=== PATIENT | female | born 1960 | race Caucasian/White ===

== ENCOUNTER → 2018-02-16 11:40 | Outpatient (CLI) | payer OTHER, SELFPAY ==
[2018-02-16 11:56] LABS: Bacteria Urine None Seen; RBC Urine None Seen (0-5/HPF); WBC Urine None Seen (0-5/HPF)
[2018-02-16 12:15] LABS: Appearance Urine UA CLEAR; Bilirubin Urine UA NEGATIVE (NEGATIVE); Color Urine UA YELLOW; Glucose Urine UA NEGATIVE (Normal); Ketones Urine UA NEGATIVE (NEGATIVE); Leukocyte Esterase Urine UA NEGATIVE (NEGATIVE); Nitrite Urine UA Negative (Negative); Occult Blood Urine UA NEGATIVE (Negative); Protein Urine UA NEGATIVE (Negative); Urobilinogen Urine UA 0.2 E.U./dL (0.2)
[2018-02-16 12:27] LABS: Hemoglobin A1C% w Est Avg Glu 5.1 % (4.0-6.0)
[2018-02-16 12:39] LABS: Culture Indicated Urine Cult Not Indicated; Squamous Epithelial Cell Urine 0-1 /HPF
[2018-02-16 12:40] LABS: Add Manual Diff / Slide Review NO; Basophils Percent Auto 0.8 % (0-2); Eosinophils Percent Auto 2.2 % (2-4); Hematocrit 40.5 % (36-46); Hemoglobin 13.8 g/dL (12.0-16.0); Mean Corpuscular HGB Conc 34.2 % (30-36); Mean Corpuscular Hemoglobin 30.7 PG (26-34); Mean Corpuscular Volume 89.8 fL (80-100); Monocytes Percent Auto 8.1 % (3-14); Neutrophils Absolute Auto 3500 /uL (3000-5900); Neutrophils Percent Auto 61.9 % (50-75); Platelet Count 274 X10^3/uL (150-400); Red Blood Cell Count 4.51 X10^6/uL (4.0-5.2); Red Cell Distribution Width 12.9 % (11.6-14.8); White Blood Cell Count 5.7 X10^3/uL (4.5-11.0)
[2018-02-16 12:44] LABS: BUN Creatinine Ratio 17.8 (6-22); Blood Urea Nitrogen 16 mg/dL (7-17); Calcium 9.7 mg/dL (8.4-10.2); Carbon Dioxide 30 mmol/L (22-32); Chloride 106 mmol/L (98-107); Estimated Glomerular Filt Rate > 60.0 mL/min (>60); Glucose 78 mg/dL (70-100); HEMOLYSIS < 15 (0-50); Potassium 5.2 mmol/L (3.4-5.1); Sodium 147 mmol/L (137-145)
== END ==
PROVIDERS: Visit Provider Orthopaedic Surgery
DX: Z01.818 Encounter for other preprocedural examination (principal); Z01.812 Encounter for preprocedural laboratory examination; N39.9 Disorder of urinary system, unspecified; R73.09 Other abnormal glucose
CPT/HCPCS: 36415; 80048; 81001; 83036; 85025; 93005

== ENCOUNTER 2018-03-29 10:22 | Inpatient (IN) | payer OTHER, SELFPAY ==
[2018-03-13 10:10] VITALS: BMI 26.6
[2018-03-29] VITALS (13 sets, daily range): BP systolic 99–133; BP diastolic 50–85; PULSE 71–92; RESP 10–22; TEMP 35.8–37.7; O2SAT 88–98; BMI 26.0
--- NOTE | 2018-03-29 | DI.RAD.S_ITS ---
PROCEDURE: XR HIP W PEL IF DONE LT 2V INDICATIONS: LEFT TOTAL HIP TECHNIQUE: 2 view(s) of the hip acquired. COMPARISON: None. FINDINGS: Bones: Patient is st undergoing left hip arthroplasty, with hardware components in expected positions. The hip joint appears congruent, the sizing devices and alignment appear normal. The visualized bony structures appear intact. Soft tissues: Overlying postoperative changes are noted. No suspicious soft tissue densities. IMPRESSION: Normal intraoperative appearance of left total hip arthroplasty procedure with components in normal position in preparation for placement of final components of arthroplasty. Dictated by: Michael Howard M.D. on 03/29/2018 at 16:43 Approved by: Michael Howard M.D. on 03/29/2018 at 16:45
--- NOTE | 2018-03-29 | DI.RAD.S_ITS ---
PROCEDURE: XR HIP W PEL IF DONE LT 2V INDICATIONS: POST OPERATIVE LEFT TOTAL HIP TECHNIQUE: 2 view(s) of the hip acquired. COMPARISON: [facility] [place], [place], XR HIP W PEL IF DONE LT 2V, 03/29/2018, 13:56. FINDINGS: Bones: Patient is status post left hip arthroplasty, with hardware components in expected positions. The hip joint appears congruent. The visualized bony structures appear intact. Soft tissues: Overlying postoperative changes are noted. No suspicious soft tissue densities. IMPRESSION: Completion of left total hip arthroplasty. Note is made of relatively severe right hip osteoarthritis with near [id number] articulation. Dictated by: Michael Howard M.D. on 03/29/2018 at 16:45 Approved by: Michael Howard M.D. on 03/29/2018 at 16:46
[2018-03-29] MEDS: LACTATED RINGERS 1,000 ML 42 ML IV ×4 (11:00→15:36)
[2018-03-29] MEDS: VANCOMYCIN 1,000 MG/200 ML FROZ.PIGGY 200 MG IV (11:15)
[2018-03-29] MEDS: ACETAMINOPHEN 325 MG TABLET 975 MG PO ×2 (11:22→21:22)
[2018-03-29] MEDS: PREGABALIN 75 MG CAPSULE PO (11:23)
[2018-03-29] MEDS: CELECOXIB 200 MG CAPSULE PO (11:23)
[2018-03-29] MEDS: CEFAZOLIN 2 GM/100 ML FROZ.PIGGY IV ×2 (12:30→19:43)
--- NOTE | 2018-03-29 12:31 | PM.OP.1 ---
Operative Date/Time/Diagnoses Date of procedure: 03/29/18 Time of procedure: 12:32 Pre-op diagnosis: Left hip osteoarthritis, left hip abductor tear with calcifications Post-op diagnosis: same Procedure & Clinicians Procedure: left total hip arthroplasty, repair left hip abductors Same procedure as scheduled: Yes Indications: The patient has had progressively worsening left hip pain with radiographic changes consistent with arthritis. Non-operative management has failed and the patient has requested total hip replacement. The risks, benefits and alternatives to surgery were discussed with the patient prior to proceeding. Risks discussed included, but were not limited to, failure to relieve pain, leg length discrepancy, dislocation, stiffness, infection, nerve damage, deep venous thrombosis, pulmonary embolism, stroke, coma, heart attack, permanent paralysis and , as well as the potential need for eventual revision of the prosthetic. Surgeon: Amara Ng [employer]: Ayana Coleman Anesthesia Type: General and Spinal Operative Notes Findings: severe left hip osteoarthritis Closure Type: primary Specimen(s): none sent Implants & Drains: Ng and Nephew 52 R3, anthology 6 SO, +4 x 36 Estimated Blood Loss (mL): 350 Blood products transfused: none Procedure in detail: The patient was brought to the operating room. Patient was carefully positioned in the supine position. Time-out was performed and antibiotics were given. Anesthesia was induced. She was positioned in the on the table in order to allow hyperextension of the hip. Bilateral lower extremities were prepped and draped in a standard sterile fashion. An anterior Left hip incision was made 1 fingerbreadth lateral to the anterior superior iliac spine and extended distally towards the greater trochanter. Dissection was carried out through skin and subcutaneous tissues. The skin and subcutaneous tissues were carefully injected with Lidocaine with epi. Superficial hemostasis was achieved. The fascia over the tensor fascia breanne was defined and incised with a knife. Two Allis clamps were used to grasp the fascia. Tensor fascia breanne was retracted laterally. A gelpi retractor was placed. Dissection was carried out down along the neck. The circumflex vessels were carefully identified and cauterized with the Aqua Mantis. There was good visualization of the femoral neck. A Cobra was placed superior to the neck and the gluteus fibers were carefully stripped from that superior aspect of the capsule. A 2nd retractor was placed along the inferior aspect of the neck. The rectus insertion along the capsule was partially released. A 3rd retractor that was then gently placed over the rim of the acetabulum under the rectus. Capsule was carefully incised and released from the intertrochanteric line circumferentially superior to the mid sagittal line and inferiorly to the mid sagittal line until the lesser trochanter was palpable. A tag stitch was placed both in the superior and inferior limb of the capsular insertion. Along the acetabulum capsule was also released up to the mid sagittal 12:00 position. A portion of the labrum was resected. A saw was used to perform an osteotomy at the level of the intertrochanteric line and the junction of the superior femoral neck leaving approximately 1 finger breath of residual inferior neck above the lesser trochanter. A 2nd cut was made along the femoral neck at the base of the head and a napkin ring of neck was removed. Corkscrew was placed in the femoral head and the head was removed without difficulty. Retractors were then repositioned around the acetabulum. Residual labrum was resected and additional osteophytes were removed. A reamer that was 4 mm below the templated size was placed by hand in the acetabulum and it was reamed to centralize the acetabulum. It was then reamed up to 2 under the templated size and fluoroscopy was brought in to confirm the position of the reaming and depth of reaming. I reamed 1 under the anticipated size and touched the rim with line to line reaming. A trial cup was placed and noted that it was appropriately sized and fluoroscopy confirmed position and depth. The component was open and inserted without difficulty fluoroscopic imaging was used to confirm that the cup had been adequately seated and was well positioned. Neutral poly trial liner was placed. The cup was tested and noted to be stable. Attention was then directed to the femur. The femur was gently hyperextended additional capsular release was performed as needed in order to allow adequate visualization of the proximal femur with elevation of the femur. Patient was placed in a hyperextended slightly abducted position with maximum external rotation. Box osteotome was used to check for any residual neck as well as sclerotic bone along the trochanter. Bucklin pepper was placed in the femur. Additional broaching was performed. Canal finder was used to determine the alignment of the canal and position. Size 1 broach was placed. The canal was then appropriately broached up to the templated size as long as there was adequate stability of the broach and serial advancement of the broach without excessive impingement. Specific attention was directed at avoiding varus attempting to direct the distal aspect of the broach more anteriorly and avoiding excessive anteversion. Trial reduction showed acceptable range of motion, good stability, no posterior impingement, hoahaoism of leg length and appropriate lateral shuck. I also hyperflexed the hip and checked that there was no impingement anteriorly and there was good stability with flexion, abduction and internal rotation. Final neutral poly was placed without difficulty. Marcaine and Exparel were injected.. The stem was placed without difficulty. Repeat trial reduction and x-ray showed acceptable overall position, length, and no evidence of the femoral fracture. Final head was placed. Wound was meticulously irrigated with normal saline. The hip was reduced and additional Exparel and Marcaine were injected. The capsule was closed with interrupted nonabsorbable sutures. The fascia of the tensor was closed with interrupted and running Vicryl. No drain was placed. Any tensor fascia breanne muscle that appeared to be contused or injured which was a minimal amount was carefully resected. Capsule around the tensor was injected with Exparel and Marcaine. The skin was closed with barbed stitches for the subcutaneous tissue and skin. We also used surgical glue. The wound was dressed sterilely. Brief Betadine soak was also used and was meticulously irrigated with normal saline. Patient was transferred to recovery room in satisfactory condition. Complications: none Condition: stable Disposition: Acute Care Plan for aftercare: The patient will be maintained on a standard total hip replacement protocol with weight bearing as tolerated and anterior hip precautions. The patient will receive Aspirin and sequential compression devices for DVT prophylaxis. The patient will be discharged home when safe for the home environment.
[2018-03-29] MEDS: TRANEXAMIC ACID 1,000 MG VIAL 2000 MG INJ ×2 (13:00→15:23)
[2018-03-29] MEDS: LIDOCAINE 1% W/EPI INJ 20 ML INJ (13:04)
--- NOTE | 2018-03-29 13:08 | SUR.OPER ---
Supine, head on pillow, torso on pink pad positioner. Iliac crest at flex of foot end of table. Gel roll under operative hip. Both arms secured on arm boards <90 degrees abduction.
[2018-03-29] MEDS: BUPIVACAINE LIPOSOME 266 MG/20 ML VIAL INJ (13:17)
[2018-03-29] MEDS: BUPIVACAINE 0.25% W/ EPI VIAL 50 ML INJ (13:17)
[2018-03-29] MEDS: POVIDONE-IODINE 15 ML, SODIUM CHLORIDE 0.9% 250 ML TOP (13:18)
[2018-03-29] MEDS: fentaNYL 100 MCG/2 ML INJ 50 MCG IV (16:21)
--- NOTE | 2018-03-29 16:52 | SUR.PHASEI ---
Report called to Maria Del Rosario schultz.
--- NOTE | 2018-03-29 17:26 | SUR.PHASEI ---
Pt transferred to the floor. VS stable. Report given to Maricarmen Cantor. IV saline locked. Aquacel CDI. Pt able to wiggle winsome ankles. Reported back and lt hip pain 5/10. Spinal level L1. Belongings bag in room. Bag with medications given to spouse in the room.
[2018-03-29] MEDS: LACTATED RINGERS 1,000 ML 125 ML IV ×2 (17:50→18:22)
[2018-03-29] MEDS: IBUPROFEN 600 MG TABLET PO (17:58)
--- NOTE | 2018-03-29 18:17 | PC.NURSE ---
Pt to room 212 from PACU awake and alert. Admits to left hip pain, dull in nature /10. Anterior aquacel dry and intact. L hip. Admits to spotty sensation to BL LE's stating feels as though calves are numb. Equally warm and pink extremities. BL calf scd's in place. Ibuprofen with yogurt for pain.
[2018-03-29] MEDS: ASPIRIN EC 81 MG TABLET PO (21:23)
[2018-03-29] MEDS: DOCUSATE 100 MG CAPSULE PO (21:25)
--- NOTE | 2018-03-29 21:49 | PC.NURSE ---
Student nurse note 03/28/18 At approximately 2030 I assess patient's vital signs, during this time I also provided education on incentive spirometry as patient did not have one in room, but was told about it pre-op. After setting this up and performing three rounds of incentive spirometry patient coughed which triggered an incontinence episode. Patient stated it feels a little warm down there. With further assessment, patient stated Wow, I can't feel anything down there. Further assessment revealed efficient lower extremity sensation and strength, only numbness within perineum area. Patient was assisted onto bed jules and linens were changed. Patient bed in low locked position and call light within reach.
--- NOTE | 2018-03-29 23:12 | PC.NURSE ---
Reports no sensation in periarea. Incontinent of urine and able to void in bedpan as well. States prefers no narcotics and plans to stay with tylenol, ibuprofen and ice. Resting quietly in bed without signs of distress or discomfort. Continuous pulse oximeter in place. Room air 91-92% with sleep.
[2018-03-30] MEDS: IBUPROFEN 600 MG TABLET PO ×3 (00:07→12:43)
--- NOTE | 2018-03-30 00:28 | PC.NURSE ---
Addendum entered by Carina Alvarez R.N. 03/30/18 06:25: Requested/medicated with Ibuprofen despite stating she is having no pain; is concerned about keeping pain well controlled. Numbness still persists in anterior/lateral left thigh from hip to knee. Numbness of buttock resolved and has been able to control urinary function again. Voided on bedpan x 2 this shift for total of 1300cc UOP. BP improved at 113/70. Original Note: Patient is alert and oriented. Breath sounds CTA with RA sat of 97%; on continuous pulse oximetry as per post op epidural orders. HRR but BP low at 98/50; asymptomatic. Denies nausea. BT present and is passing flatus. Has residual numbness in left thigh, buttock and side so has been incontinent of urine as feeling sensation to urinate when already too late to call for assist; normally does have some stress incontinence. Is able to move self in bed but prefers to lie on back at this time. Dressing to left hip is CDI. States pain is 0/10 with increase to 1/10 with movement but requests/medicated with Ibuprofen to stay on top it; ice also applied for comfort. CMS of lower extremites (except upper leg/buttock) is intact. Wearing bilateral SCD's. Fall risk score is moderate and bed alarm is activated.
[2018-03-30] MEDS: LACTATED RINGERS 1,000 ML 125 ML IV ×2 (02:08→11:40)
[2018-03-30] MEDS: CEFAZOLIN 2 GM/100 ML FROZ.PIGGY IV (04:10)
[2018-03-30 06:25] VITALS: BP 113/70; PULSE 77; RESP 18; TEMP 36.9; O2SAT 98
[2018-03-30 06:53] LABS: Hematocrit 28.7 % (36-46); Hemoglobin 9.7 g/dL (12.0-16.0)
[2018-03-30 07:37] VITALS: BP 100/64; PULSE 71; RESP 14; TEMP 36.8; O2SAT 98
[2018-03-30] MEDS: ACETAMINOPHEN 325 MG TABLET 975 MG PO ×2 (09:13→14:53)
[2018-03-30] MEDS: ASCORBIC ACID 500 MG TABLET PO (09:14)
[2018-03-30] MEDS: ASPIRIN EC 81 MG TABLET PO (09:14)
[2018-03-30] MEDS: FERROUS GLUCONATE 324 MG TABLET PO (09:14)
[2018-03-30] MEDS: DOCUSATE 100 MG CAPSULE PO (09:15)
--- NOTE | 2018-03-30 09:20 | P.PN_ITS ---
Subjective Date Patient Seen: 03/30/18 Time Patient Seen: 09:17 Interval history: Hospital day 2, postop day 1 following left anterior total hip arthroplasty and abductors tear repair by Dr. Ng. Patient states she is doing well today. Has been taking ibuprofen and Tylenol only for pain. She has not been out of bed yet. No physical therapy yet. Does note some mild numbness to her left anterior thigh. She is voiding. H&H this morning 9.7/ 28.7. Exam Vital Signs (past 8 hours): - 03/30/18 06:25 03/30/18 07:37 Temperature 98.4 F 98.2 F Pulse Rate 77 71 Respiratory Rate 18 14 Blood Pressure 113/70 100/64 Pulse Oximetry 98 98 Oxygen Delivery Method Room Air Oxygen Flow Rate 0 Narrative Exam Narrative: Alert, oriented no acute distress lying in bed. Legs. Aquacel dressing to left anterior hip is dry without drainage or inflammation. No calf pain or swelling. Pulses symmetrical. Good movement of ft on dorsiflexion plantar flexion. Patient also seen by Dr. Ng. Objective Labs Result Diagrams: 03/30/18 06:33 Labs: Laboratory Results - last 24 hr 03/30/18 06:33 Hgb 9.7 L Hct 28.7 L Assessment & Plan Post-op Postoperative Procedures Operation Date: 03/29/18 12:00 Actual Procedures Side Surgeon p Total Hip Arthroplasty/Anterior Approach Left Amaramindi Ng MD Co plan patient to be discharged home later today after cleared by physical therapy. Patient will be started on ferrous gluconate and vitamin-C for treatment of her anemia. Patient is a [facility] patient and has prescriptions at home for oxycodone and hydroxyzine. Quality VTE Deep Vein Thrombosis/Pulmonary Embolism Present on Admission: No
--- NOTE | 2018-03-30 09:40 | PM.DS.1 ---
History of Present Illness Date Patient Seen: 03/30/18 Time Patient Seen: 09:41 Chief complaint: total hip arthroplasty left [id number] Narrative: Pain brought to hospital on 03/29/2018 for left anterior total hip arthroplasty. See preoperative history and physical for history of present illness. Discharge Providers Date of admission: 03/29/18 10:22 Consults: 03/29/18 06:00 Consult to Anesthesiology Routine Comment: Consulting Provider: Anesthesiologist Reason for consultation: Regional block for post operative pain control 03/29/18 17:30 Consult to Discharge Planning Routine Comment: Consult to Physical Therapy Evaluate & Treat Comment: Physician Instructions: post op KAZ protocol Consult to Respiratory Therapy Evaluate & Treat Comment: Physician Instructions: Evaluate and treat Discharge provider: Dougie Hammond PA-C Discharge Date: 03/30/18 Summary Discharge Diagnosis: Status post left anterior total hip arthroplasty and abductor tear repair. Hospital Course: Patient remained stable postoperatively. She did have a postoperative anemia but was asymptomatic. She was started on ferrous gluconate and vitamin-C for her anemia. She progressed with physical therapy and was able to be discharged home on postop day 1. Status at Discharge Cognitive/behavioral status at discharge: Alert, oriented no acute distress. Functional status at discharge: uses cane/walker Overall status at discharge: patient is progressing back to baseline Time Spent with Patient Less than 30 minutes Exam Vital Signs (past 8 hours): - 03/30/18 06:25 03/30/18 07:37 Temperature 98.4 F 98.2 F Pulse Rate 77 71 Respiratory Rate 18 14 Blood Pressure 113/70 100/64 Pulse Oximetry 98 98 Oxygen Delivery Method Room Air Oxygen Flow Rate 0 Narrative Exam Narrative: Left leg. Aquacel dressing to left anterior hip is dry without drainage or inflammation. No calf pain or swelling. Pulses symmetrical. Patient is able to fire her quad. Objective Labs Result Diagrams: 03/30/18 06:33 Labs: Laboratory Results - last 24 hr 03/30/18 06:33 Hgb 9.7 L Hct 28.7 L Discharge Plan Discharge Plan Patient Disposition: Home Discharge comment: Discharged to home after cleared by physical therapy. Discharge Med Rec/Prescriptions Prescriptions: New aspirin 81 mg Tablet,Delayed Release (Dr/Ec) 81 mg PO BID 30 Days Qty: 60 RF: 0 ascorbic acid (vitamin C) [Vitamin C] 500 mg Tablet 500 mg PO BID 30 Days Qty: 60 RF: 0 docusate sodium 100 mg Capsule 100 mg PO BID 7 Days Qty: 14 RF: 0 ferrous gluconate 324 mg (38 mg iron) Tablet 324 mg PO BID 30 Days Qty: 60 RF: 0 Continue fluticasone-salmeterol [Advair Diskus] 250-50 mcg/dose Blister With Device 1 inh INHALATION QAM RF: 0 ibuprofen 200 mg Capsule 800 mg PO TID PRN (Reason: Pain (Scale Score 4-6)) RF: 0 ciclesonide [Zetonna] 37 mcg/actuation Hfa Aerosol Inhaler 1 spray INTRANASAL DAILY RF: 0 Tylenol Extra Strength 500 mg 1,000 mg PO BID PRN (Reason: Pain (Scale Score 4-6)) RF: 0 Provider Discharge Instructions Diet: Diet as Tolerated Activity: Avoid moving left leg to the side and behind when ambulating. Cold/Heat Therapy: Ice packs to incision area as needed. Skin/Wound/Dressing Care Report to your healthcare provider any signs of infection, such as:: chills, fever, night sweats, increased pain and unusual drainage Dressing: Keep Aquacel dressing in place until postop visit. Visit Report/Discharge Packet Instructions: DI for Hip Replacement Discharge Data Attending Provider: Amara Ng Admit Date/Time: 03/29/18 10:22 Quality VTE Deep Vein Thrombosis/Pulmonary Embolism Present on Admission: No
--- NOTE | 2018-03-30 10:01 | PT.IIE ---
Current Diagnoses Unilateral primary osteoarthritis, left hip (03/29/18) Surgery Performed Operation Date: 03/29/18 12:00 Actual Procedures p Total Hip Arthroplasty/Anterior Approach(Left) - Amara Ng MD Surgical History (Last Updated 03/13/18 @ 10:25 by Yarelis Mendez RN) Hx of appendectomy (Acute) Status post bilateral cataract extraction (Acute) Medical History (Last Updated 03/13/18 @ 10:25 by Yarelis Mendez RN) Asthma (Acute) Back pain (Acute) Bilateral hip pain (Acute) Bilateral knee pain (Acute) COPD (chronic obstructive pulmonary disease) (Acute) Migraines (Acute) Osteoarthritis (Acute) Physical Therapy Inpatient Evaluation/Re-Eval M1 PT/OT-IP Prior Functional Status Start: 03/30/18 09:49 Freq: NEEDED Status: Active Protocol: Document 03/30/18 09:50 SAK (Rec: 03/30/18 10:01 SAK [id number]) Medical Review Prior Functional Status Medical History Reviewed Yes Communication WNL Mobility and Gait Painful but indep Activities of Daily Living and IADL's painful Social History Household Members spouse children Living Arrangements House Number of Floors (Floors) One Floor Number of Stairs To Enter/Railing? 1 small step to landing Home Equipment Front Wheel Walker Additional Social History Comment Patient is full-time at home, 13y/o special needs daughter, home-schooled M2 PT-IP Current Condition Start: 03/30/18 09:49 Freq: NEEDED Status: Active Protocol: Document 03/30/18 09:50 SAK (Rec: 03/30/18 10:01 SAK [id number]) Physical Therapy Current Condition Current Condition Evaluation Date 03/30/18 Treatment Diagnosis s/p left KAZ anterior approach , left hip abductor tear repair Onset Date 03/29/18 Precautions Anterior Hip Precautions No Hip Extension No Hip External Rotation Other Precautions cautious with hip abductor strengthening for [address] Ng order Weight Bearing Status Weight Bearing Status Weight Bear as Tolerated M3 PT-IP Subjective Start: 03/30/18 09:49 Freq: NEEDED Status: Active Protocol: Document 03/30/18 09:50 SAK (Rec: 03/30/18 10:01 SAK [id number]) Subjective Physical Therapy Visit Type Type Initial Evaluation Visit Start Time 09:15 Visit Stop Time 09:46 Total Visit Minutes 31 Number of OVERCOIL STEPPER Visits 0 Therapy Pain Assessment Pain When Pain Assessed After Treatment Pain Present Pain Present Pain Reported Location Left Hip Intensity 2 M4 PT-IP Mobility and Gait Start: 03/30/18 09:49 Freq: NEEDED Status: Active Protocol: Document 03/30/18 09:50 [facility] (Rec: 03/30/18 10:01 [facility] [id number]) PT-Bed Mobility Assessment Supine to Sit Supine to Sit Minimal Assistance Head of Bed Elevated Scooting Scooting to Edge of Bed Minimal Assistance PT-Transfer Assessment Sit to and From Stand Sit to and from Stand Contact Guard Assistance Use of Upper Extremities Equipment Transfer Assistive Device Front Wheeled Walker Transfers Transfer Destination Bed Transfer Ability Level of Assist Contact Guard Assistance Comments Mobility Comments cues for sequencing and safety , no LOB Gait Assessment Gait Gait Assistance Required: Standby Assistance Contact Guard Assist Distance (Feet) 15 Able to Maintain Weight Bearing Status Yes During Gait Assistive Devices Assistive Device Front Wheeled Walker Gait Deviations General Gait Pattern Antalgic Decreased Stride Length Decreased Feet Clearance Comments Gait Comments Patient demonstrated good safety awareness, receptive to cues for sequencing and safety, no LOB, minimal dizziness which decreased with deep breathing PT-Balance Assessment Sitting Balance and Reactions Static Sitting Balance Ability Normal Dynamic Sitting Balance Ability Normal Standing Balance and Reactions Static Standing Balance Ability Normal Dynamic Standing Balance Ability Normal M5 PT-IP Objective Assessments Start: 03/30/18 09:49 Freq: NEEDED Status: Active Protocol: Document 03/30/18 09:50 [facility] (Rec: 03/30/18 10:01 [facility] [id number]) Orientation Orientation/Cognition Level of Alertness Alert Gross Range of Motion Upper Extremity ROM Assessment Within Functional Limits Lower Extremity ROM Assessment Left Impaired Impairments typical post-op limitations Strength Upper Extremity Strength Assessment Within Functional Limits Lower Extremity Strength Assessment Left Impaired Comments Strength Comments min assist heel slide, min assist for assisting left LE OOB Sensation Assessment Sensation Gross Sensation Left LE Impaired Comments Sensation Comments reports numbness left anterior and lateral thigh to knee. Muscle Tone Muscle Tone WNL Yes M6 PT-IP Treatment Start: 03/30/18 09:49 Freq: NEEDED Status: Active Protocol: Document 03/30/18 09:50 [facility] (Rec: 03/30/18 10:01 [facility] [id number]) Physical Therapy Treatment Exercises Exercises Ankle Pumps Gluteal Sets Quad Sets Heel Slides M7 PT-IP Assessment and Plan Start: 03/30/18 09:49 Freq: NEEDED Status: Active Protocol: Document 03/30/18 09:50 [facility] (Rec: 03/30/18 10:01 [facility] [id number]) PT Summary Assessment and Plan Potential Rehabilitation Potential Excellent Status of Condition at Evaluation Evolving Summary Impairments Bed Mobility Transfers Gait Activity Tolerance Assessment Summary Patient doing well post-op day #1 with anticipated discharge home after PT in afternoon. Will need to review KAZ precautions, transfers, bed mobility, practice step up onto platform to simulate landing at entry to home. Will have help of at home, mother arriving over weekend to help as well. Goals Bed Mobility Goal Contact Guard Assistance Minimal Assistance Transfer Goal Standby Assistance Gait Goal Standby Assistance Gait Distance 40 Days to Meet Goals 1 Frequency of Treatment Frequency Of Treatment Twice a Day Treatment Plan Physical Therapy Treatment Plan Bed Mobility Training Transfer Training Gait Training Therapeutic Exercise Post Op Education Other Recommendations and Next Treatment as above Focus Recommendations To Nursing Amount of Assist Needed 1 Person Assist Discharge Recommendations PT Discharge Recommendations Home with Assistance
[2018-03-30 10:37] VITALS: PULSE 75; RESP 18; O2SAT 98
[2018-03-30] MEDS: FLUTICASONE/SALMETEROL 250/50 14 PUFF DISKUS INH (10:37)
[2018-03-30] MEDS: CICLESONIDE 1 EACH NASAL (11:38)
[2018-03-30 11:50] VITALS: BP 91/54; PULSE 73; RESP 16; TEMP 37; O2SAT 98
--- NOTE | 2018-03-30 11:55 | PC.NURSE ---
Addendum entered by Shannan Murphy R.N. 03/30/18 14:28: MS/PAIN/DC - per pt, rec'd prescriptions for vistaril and oxycodone prior to surgery, new medications are OTC and no scripts, did give copy to spouse who will cotton picking machine operator at [employer] prior to discharge, after lunch, given ibuprofen for pain 3-4 on scale 0/10, phys therapy in this afternoon, up w/fww, no dizziness reported and ambul w/fww out into hallway, ret to bed to finish exercises with phys therapy and given 975mg tylenol for discomfort 2-4 on scale 0/10. Original Note: AM NOTE - pt is alert, describes minimal pain 2 on scale 0/10, discussed medications and prefers to continue with acet and the ibuprofen, + cms, l hip aquacell dsg cdi, continues with some decr sensation l thigh to knee area, phys therapy in this am, denies dizziness and able to stand and ambul to doorway, bp 90's/50's, taking po and contin ivf for support this am, bs clear, ra 99%.
--- NOTE | 2018-03-30 15:00 | PT.IPTN ---
Current Diagnoses Unilateral primary osteoarthritis, left hip (03/29/18) Surgery Performed Operation Date: 03/29/18 12:00 Actual Procedures p Total Hip Arthroplasty/Anterior Approach(Left) - Amara Ng MD Physical Therapy Treatment Note M2 PT-IP Current Condition Start: 03/30/18 09:49 Freq: NEEDED Status: Active Protocol: Document 03/30/18 15:00 DLM (Rec: 03/30/18 15:27 DLM [id number]) Physical Therapy Current Condition Current Condition Evaluation Date 03/30/18 Treatment Diagnosis left KAZ anterior approach, left hip abductor tear repair Onset Date 03/29/18 Precautions Anterior Hip Precautions No Hip Extension No Hip External Rotation Other Precautions cautious with hip abductor strengthening for [address] Ng order Weight Bearing Status Weight Bearing Status Weight Bear as Tolerated M3 PT-IP Subjective Start: 03/30/18 09:49 Freq: NEEDED Status: Active Protocol: Document 03/30/18 15:00 DLM (Rec: 03/30/18 15:27 DLM [id number]) Subjective Physical Therapy Visit Type Type Treatment Note Visit Start Time 14:00 Visit Stop Time 15:00 Total Visit Minutes 60 Number of SEARCH ENGINE OPTIMIZER Visits 0 Physical Therapy Visit Comments Patient Comments No light-headedness, feels a lot of swelling in left hip area Patient Goals go home with family Therapy Pain Assessment Pain When Pain Assessed At Rest Pain Present Pain Present Pain Reported Location Left Hip Intensity 3 Scale Used Numeric (1 - 10) Description Aching Pain Management Techniques Apply Cold M4 PT-IP Mobility and Gait Start: 03/30/18 09:49 Freq: NEEDED Status: Active Protocol: Document 03/30/18 15:00 DLM (Rec: 03/30/18 15:27 DLM [id number]) PT-Bed Mobility Assessment Supine to Sit Supine to Sit Minimal Assistance Sit to Supine Sit to Supine Standby Assistance Scooting Scooting to Edge of Bed Independent Scooting Up and Down in Bed Independent PT-Transfer Assessment Sit to and From Stand Sit to and from Stand Independent Equipment Transfer Assistive Device Gait Belt Front Wheeled Walker Transfers Transfer Destination Chair Transfer Technique Stand Step Pivot Transfer Ability Level of Assist Standby Assistance Use of Upper Extremities Comments Mobility Comments educated pt in how to use gait belt as leg fur dyer to assist moving left LE on the bed, educated her in avoiding active hip abduction motions due to muscular repair, pt safely able to use leg fur dyer or her Spouse to assist her left LE into bed Gait Assessment Gait Gait Assistance Required: Standby Assistance Distance (Feet) 80 Able to Maintain Weight Bearing Status Yes During Gait Assistive Devices Assistive Device Gait Belt Front Wheeled Walker Gait Deviations General Gait Pattern Antalgic Decreased Stride Length Factors Limiting Gait Function Factors Limiting Gait Function Decreased Activity Tolerance Decreased Strength Pain Stair Climbing Assessment Comments Stair Climbing Comments no stairs at her house PT-Balance Assessment Sitting Balance and Reactions Static Sitting Balance Ability Normal Dynamic Sitting Balance Ability Normal Standing Balance and Reactions Static Standing Balance Ability Good Dynamic Standing Balance Ability Good Device Used with fWW M5 PT-IP Objective Assessments Start: 03/30/18 09:49 Freq: NEEDED Status: Active Protocol: Document 03/30/18 09:50 SAK (Rec: 03/30/18 10:01 SAK [id number]) Orientation Orientation/Cognition Level of Alertness Alert Gross Range of Motion Upper Extremity ROM Assessment Within Functional Limits Lower Extremity ROM Assessment Left Impaired Impairments typical post-op limitations Strength Upper Extremity Strength Assessment Within Functional Limits Lower Extremity Strength Assessment Left Impaired Comments Strength Comments min assist heel slide, min assist for assisting left LE OOB Sensation Assessment Sensation Gross Sensation Left LE Impaired Comments Sensation Comments reports numbness left anterior and lateral thigh to knee. Muscle Tone Muscle Tone WNL Yes M6 PT-IP Treatment Start: 03/30/18 09:49 Freq: NEEDED Status: Active Protocol: Document 03/30/18 15:00 DLM (Rec: 03/30/18 15:27 DLM [id number]) Physical Therapy Treatment Exercises Exercises Ankle Pumps Quad Sets Heel Slides Education Education Provided Precautions Weight Bearing Status Post-Op Packet Safety Other Treatments Other Treatment Performed her Spouse participated in education M7 PT-IP Assessment and Plan Start: 03/30/18 09:49 Freq: NEEDED Status: Active Protocol: Document 03/30/18 15:00 DLM (Rec: 03/30/18 15:27 DLM [id number]) PT Summary Assessment and Plan Summary Progress Towards Goals Progressing Toward Goals Safe For Discharge Assessment Summary She is progressing well this visit. She is able to ambulate in the [place] without light- headedness nor dizziness. Her pain appears well managed at this time. She verbalizes a good understanding of her precautions. She has a supportive Spouse to assist her at home. Frequency of Treatment Frequency Of Treatment Discharge Recommendations To Nursing Amount of Assist Needed 1 Person Assist Discharge Recommendations PT Discharge Recommendations Home with Assistance Outpatient PT
--- NOTE | 2018-03-30 16:04 | PC.NURSE ---
Pt cleared for discharge per Miriam.Felipa Celis. Heplock removed intact and pt ambulatory with walker to bathroom to void. Denies dizziness or lightheadedness when up. Encouraged to move slowly due to marginal blood pressures this shift per report. Discharge instructions provided to pt and pt's spouse in written and verbal format. Pt left hospital in stable condition with all belongings accounted for in stable condition. Accompanied by this medical writer per wheelchair to private vehicle.
--- NOTE | 2018-03-30 16:05 | CM.IDA ---
DCP Assessment/DC NOte: Met w/pt and spouse briefly, pt being DC home today. Spouse feeling more confident than pt today about the DC home but pt knows that spouse and 15 yo dtr will be present to assist prn at home. Pt also has her mother coming to stay from out of state to assist as needed for a couple weeks. No barriers to safe DC home today. PT= Home w/spouse and outpt PT. CARLEY Barnett
== END 2018-03-30 16:00 | disposition home or self-care (01) | DRG 470 ==
PROVIDERS: Admitting Provider Orthopaedic Surgery; Visit Provider Orthopaedic Surgery
PROC: 0SRB01A Replacement of Left Hip Joint with Metal Synthetic Substitute, Uncemented, Open Approach (ICD-10-PCS; CPT 27130; principal; 2018-03-29 12:00)
DX: M16.12 Unilateral primary osteoarthritis, left hip (principal); S76.212A Strain of adductor muscle, fascia and tendon of left thigh, initial encounter; X58.XXXA Exposure to other specified factors, initial encounter; D64.9 Anemia, unspecified
CPT/HCPCS: 36415; 73502; 76001; 85014; 85018; 94640; 97110; 97116; 97162; 97530; C1776; C9290; J0690; J2250; J2704; J3010; J3370

== ENCOUNTER 2018-09-13 10:13 | Inpatient (IN) | payer OTHER, SELFPAY ==
[2018-03-29 13:58] VITALS: BMI 26.0
[2018-09-03 09:51] VITALS: BMI 26.6
[2018-09-13] VITALS (16 sets, daily range): BP systolic 101–144; BP diastolic 65–90; PULSE 60–82; RESP 15–18; TEMP 36.1–37.4; O2SAT 90–99; BMI 26.6
--- NOTE | 2018-09-13 | DI.RAD.S_ITS ---
PROCEDURE: XR PELVIS 1-2V INDICATIONS: pubic symphysis pain TECHNIQUE: 1 view(s) of the pelvis acquired. COMPARISON: [facility], CR, XR HIP W PEL IF DONE LT 2V, 03/29/2018, 13:56. [facility], CR, XR HIP W PEL IF DONE LT 2V, 03/29/2018, 16:20. FINDINGS: Prominent gridlines are seen. Bones: There is a mildly displaced fracture seen involving the lateral aspect of the left superior pubic ramus. No definite additional fractures can be seen. No suspicious bony lesions. Age-appropriate lower lumbar spine degenerative changes are noted. There is severe right hip degenerative change seen. Left hip arthroplasty hardware is seen. Soft tissues: Visualized bowel gas pattern is normal. No suspicious soft tissue calcifications. IMPRESSION: Mildly displaced fracture of the lateral aspect of the left superior pubic ramus. No additional fractures can be seen. Please consider a dedicated pelvis CT for further evaluation. Severe right hip degenerative change. Unremarkable left hip arthroplasty hardware. Dictated by: Shaun Spann M.D. on 09/13/2018 at 11:26 Approved by: Shaun Spann M.D. on 09/13/2018 at 11:28
--- NOTE | 2018-09-13 | DI.RAD.S_ITS ---
PROCEDURE: XR PELVIS 1-2V INDICATIONS: RIGHT INTEROPERATIVE HIP TECHNIQUE: 1 view of the lower pelvis acquired. COMPARISON: [facility], , XR PELVIS 1-2V, 09/13/2018, 11:53. FINDINGS: Bones: Patient is status post right hip arthroplasty, with hardware components in expected positions. The hip joint appears congruent. The visualized bony structures appear intact. Soft tissues: Overlying postoperative changes are noted. No suspicious soft tissue densities. IMPRESSION: Normal alignment after right total hip arthroplasty. Prior left total hip arthroplasty shows no evidence of device loosening or disruption. Dictated by: Michael Howard M.D. on 09/13/2018 at 16:51 Approved by: Michael Howard M.D. on 09/13/2018 at 16:52
--- NOTE | 2018-09-13 06:00 | DI.RAD.S_ITS ---
PROCEDURE: XR HIP W PEL IF DONE RT 2V INDICATIONS: post op films TECHNIQUE: AP pelvis and lateral view of the right hip acquired. COMPARISON: [facility], CR, XR PELVIS 1-2V, 09/13/2018, 11:53. [facility], CR, XR PELVIS WITH LATERAL HIP LEFT, 08/15/2018, 16:19. [facility] [place], CR, XR PELVIS WITH LATERAL HIP LEFT, 04/13/2018, 16:12. [facility], CR, XR PELVIS WITH BILATERAL LATERAL HIPS, 11/17/2017, 15:04. [facility], CR, XR HIP W PEL IF DONE LT 2V, 03/29/2018, 16:20. [facility], CR, XR HIP W PEL IF DONE LT 2V, 03/29/2018, 13:56. FINDINGS: Bones: Patient is status post right hip arthroplasty, with hardware components in expected positions. The hip joint appears congruent. The visualized bony structures appear intact. A previously identified medial superior left obturator ring fracture discussed in report from earlier today is again noted. This was not present on prior plain films but was present prior to the operative procedure. Soft tissues: Overlying new postoperative changes of right total hip arthroplasty are noted. No suspicious soft tissue densities. IMPRESSION: Recently identified left medial superior obturator ring fracture is again seen, present also prior to the operative procedure. Normal alignment after right total hip arthroplasty earlier today. Prior left total hip arthroplasty history of disruption. Dictated by: Michael Howard M.D. on 09/13/2018 at 17:19 Approved by: Michael Howard M.D. on 09/13/2018 at 17:22
[2018-09-13] MEDS: LACTATED RINGERS 1,000 ML 42 ML IV ×2 (10:52→15:16)
[2018-09-13] MEDS: ACETAMINOPHEN 325 MG TABLET 975 MG PO ×2 (10:54→21:40)
[2018-09-13] MEDS: PREGABALIN 75 MG CAPSULE PO (10:55)
[2018-09-13] MEDS: CELECOXIB 200 MG CAPSULE PO (10:55)
--- NOTE | 2018-09-13 11:15 | PM.PREOP ---
Pre-operative Note Interval Note History & Physical reviewed/Exam performed by Physician: Yes Changes to H&P: No
--- NOTE | 2018-09-13 11:15 | PM.OP.1 ---
Operative Date/Time/Diagnoses Date of procedure: 09/13/18 Time of procedure: 11:15 Pre-op diagnosis: right hip OA Post-op diagnosis: same Procedure & Clinicians Procedure: right total hip arthroplasty Same procedure as scheduled: Yes Indications: The patient has had progressively worsening right hip pain with radiographic changes consistent with arthritis. Non-operative management has failed and the patient has requested total hip replacement. The risks, benefits and alternatives to surgery were discussed with the patient prior to proceeding. Risks discussed included, but were not limited to, failure to relieve pain, leg length discrepancy, dislocation, stiffness, infection, nerve damage, deep venous thrombosis, pulmonary embolism, stroke, coma, heart attack, permanent paralysis and , as well as the potential need for eventual revision of the prosthetic. Surgeon: Amara Ng Poultry Sexer: Ayana Coleman Anesthesia Type: General and Spinal Operative Notes Findings: Severe right hip osteoarthritis with mild protrusio Closure Type: primary Specimen(s): none sent Prosthetic devices, grafts, tissues, transplants, or devices: Ng and Nephew R3 54 acetabulum, size 6 standard offset anthology, +0 head by 36 Estimated Blood Loss (mL): 250 Blood products transfused: none Procedure in detail: The patient was brought to the operating room. Patient was carefully positioned in the supine position. Time-out was performed and antibiotics were given. Anesthesia was induced. She was positioned in the on the hana table in order to allow hyperextension of the hip. the right lower extremity was prepped and draped in a standard sterile fashion. An anterior right hip incision was made 1 fingerbreadth lateral to the anterior superior iliac spine and extended distally towards the greater trochanter. Dissection was carried out through skin and subcutaneous tissues. The skin and subcutaneous tissues were carefully injected with Lidocaine with epi. Superficial hemostasis was achieved. The fascia over the tensor fascia breanne was defined and incised with a knife. Two Allis clamps were used to grasp the fascia. Tensor fascia breanne was retracted laterally. A gelpi retractor was placed. Dissection was carried out down along the neck. The circumflex vessels were carefully identified and cauterized with the Aqua Mantis. There was good visualization of the femoral neck. A Cobra was placed superior to the neck and the gluteus fibers were carefully stripped from that superior aspect of the capsule. A 2nd retractor was placed along the inferior aspect of the neck. The rectus insertion along the capsule was partially released. A 3rd retractor that was then gently placed over the rim of the acetabulum under the rectus. Capsule was carefully incised and released from the intertrochanteric line circumferentially superior to the mid sagittal line and inferiorly to the mid sagittal line until the lesser trochanter was palpable. A tag stitch was placed both in the superior and inferior limb of the capsular insertion. Along the acetabulum capsule was also released up to the mid sagittal 12:00 position. A portion of the labrum was resected. A saw was used to perform an osteotomy at the level of the intertrochanteric line and the junction of the superior femoral neck leaving approximately 1 finger breath of residual inferior neck above the lesser trochanter. A 2nd cut was made along the femoral neck at the base of the head and a napkin ring of neck was removed. Corkscrew was placed in the femoral head and the head was removed without difficulty. Retractors were then repositioned around the acetabulum. Residual labrum was resected and additional osteophytes were removed. A reamer that was 4 mm below the templated size was placed by hand in the acetabulum and it was reamed to centralize the acetabulum. It was then reamed up to 2 under the templated size and fluoroscopy was brought in to confirm the position of the reaming and depth of reaming. I reamed 1 under the anticipated size and touched the rim with line to line reaming. A trial cup was placed and noted that it was appropriately sized and fluoroscopy confirmed position and depth. The component was open and inserted without difficulty fluoroscopic imaging was used to confirm that the cup had been adequately seated and was well positioned. She had very soft bone and I stabilized the cup with a screw which had good bite. Neutral poly trial liner was placed. The cup was tested and noted to be stable. Attention was then directed to the femur. The femur was gently hyperextended additional capsular release was performed as needed in order to allow adequate visualization of the proximal femur with elevation of the femur. Patient was placed in a hyperextended slightly abducted position with maximum external rotation. Box osteotome was used to check for any residual neck as well as sclerotic bone along the trochanter. [place] pepper was placed in the femur. Additional broaching was performed. Canal finder was used to determine the alignment of the canal and position. Size 1 broach was placed. The canal was then appropriately broached up to the templated size as long as there was adequate stability of the broach and serial advancement of the broach without excessive impingement. Specific attention was directed at avoiding varus attempting to direct the distal aspect of the broach more anteriorly and avoiding excessive anteversion. Trial reduction showed acceptable range of motion, good stability, no posterior impingement, oriental orthodox of leg length and appropriate lateral shuck. I also hyperflexed the hip and checked that there was no impingement anteriorly and there was good stability with flexion, adduction and internal rotation. Extension of 60 degrees with ER of 100 degrees was stable in abduction. Final neutral poly was placed without difficulty. Marcaine and Exparel were injected.. The stem was placed without difficulty. Repeat trial reduction and x-ray showed acceptable overall position, length, and no evidence of the femoral fracture. The offset and leg lengths were equal on the xray with fluoro. Final head was placed. Wound was meticulously irrigated with normal saline. The hip was reduced and additional Exparel and Marcaine were injected. The capsule was closed with interrupted nonabsorbable sutures. The fascia of the tensor was closed with interrupted and running Vicryl. No drain was placed. Any tensor fascia breanne muscle that appeared to be contused or injured which was a minimal amount was carefully resected. Capsule around the tensor was injected with Exparel and Marcaine. The skin was closed with barbed stitches for the subcutaneous tissue and skin. We also used surgical glue. The wound was dressed sterilely. Brief Betadine soak was also used and was meticulously irrigated with normal saline. Patient was transferred to recovery room in satisfactory condition. Complications: none Condition: stable Disposition: Acute Care Plan for aftercare: The patient will be maintained on a standard total hip replacement protocol with weight bearing as tolerated and anterior hip precautions. The patient will receive Aspirin and sequential compression devices for DVT prophylaxis. The patient will be discharged home when safe for the home environment.
[2018-09-13] MEDS: VANCOMYCIN 1,000 MG/200 ML FROZ.PIGGY 200 MG IV (11:20)
[2018-09-13] MEDS: CEFAZOLIN 2 GM/100 ML FROZ.PIGGY IV ×2 (12:26→19:47)
[2018-09-13] MEDS: LIDOCAINE 1% W/EPI INJ 20 ML INJ (13:15)
[2018-09-13] MEDS: TRANEXAMIC ACID 1,000 MG VIAL 1000 MG INJ ×2 (13:31→15:39)
[2018-09-13] MEDS: POVIDONE-IODINE 15 ML, SODIUM CHLORIDE 0.9% 250 ML TOP (13:32)
[2018-09-13] MEDS: BUPIVACAINE LIPOSOME 266 MG/20 ML VIAL INJ (14:18)
[2018-09-13] MEDS: BUPIVACAINE 0.25% W/ EPI (PF) 10 ML VIAL 60 ML INJ (14:19)
[2018-09-13] MEDS: fentaNYL 100 MCG/2 ML INJ 50 MCG IV ×2 (16:54→17:00)
[2018-09-13] MEDS: HYDROMORPHONE 2 MG INJ 0.5 MG IV ×3 (17:09→17:25)
[2018-09-13] MEDS: LACTATED RINGERS 1,000 ML 125 ML IV (18:06)
[2018-09-13] MEDS: IBUPROFEN 400 MG TABLET 800 MG PO (19:42)
[2018-09-13] MEDS: DOCUSATE 100 MG CAPSULE PO (21:41)
[2018-09-13] MEDS: ASPIRIN EC 81 MG TABLET PO (21:41)
[2018-09-14] MEDS: LACTATED RINGERS 1,000 ML 125 ML IV (01:49)
[2018-09-14] MEDS: CEFAZOLIN 2 GM/100 ML FROZ.PIGGY IV (03:58)
[2018-09-14] MEDS: IBUPROFEN 600 MG TABLET PO (04:04)
[2018-09-14 04:27] VITALS: BP 99/70; PULSE 73; RESP 18; O2SAT 97
[2018-09-14 05:36] LABS: Hematocrit 31.7 % (36-46); Hemoglobin 10.7 g/dL (12.0-16.0)
--- NOTE | 2018-09-14 07:25 | P.DS_ITS ---
History of Present Illness Date Patient Seen: 09/14/18 Chief complaint: right hip [id number] Narrative: Patient is seen bedside along with Dr. Ng status post right anterior total hip arthroplasty performed on 09/13/2018. Patient is doing well from the surgery, however, she has a complication of a left pubic ramus stress fracture sustained in July while in [place]. She has been taking ibuprofen as well as Tylenol for her pain and does not want any narcotics as she gets severely nauseated with codeine derivatives. She also complains of an exacerbation of her right knee pain where she has underlying severe osteo arthritis. Discharge Providers Date of admission: 09/13/18 10:13 Discharge Date: 09/14/18 Consults: 09/13/18 06:00 Consult to Anesthesiology Routine Comment: Consulting Provider: Anesthesiologist Reason for consultation: Regional block for post operative pain control 09/13/18 17:51 Consult to Discharge Planning Routine Comment: Consult to Physical Therapy Evaluate & Treat Comment: Physician Instructions: post op KAZ protocol Consult to Respiratory Therapy Evaluate & Treat Comment: Physician Instructions: Evaluate and treat Discharge provider: Ayana Coleman PA-C Summary Discharge Diagnosis: Right hip osteoarthritis Hospital Course: Patient admitted to the hospital s/p R. anterior KAZ with Dr. Ng on 09/13/18. Patient tolerated the procedure well with no major complications. They were transferred to the acute care floor where they were placed on the standard joint replacement pathway and protocol. They were seen by physical therapy who recommended that they be discharged home. They were stable and ready for discharge on 09/14/18. Status at Discharge Cognitive/behavioral status at discharge: oriented Functional status at discharge: uses cane/walker Overall status at discharge: patient is progressing back to baseline Time Spent with Patient Less than 30 minutes Exam Vital Signs (past 8 hours): - 09/13/18 23:47 09/14/18 04:27 Temperature 99.3 F Pulse Rate 78 73 Respiratory Rate 16 18 Blood Pressure 144/83 H 99/70 Pulse Oximetry 98 97 Oxygen Delivery Method Room Air Oxygen Flow Rate 2 Narrative Exam Narrative: Well-developed, well-nourished, no acute distress. Alert and oriented to person, place, and time. Dressing on operative hip is clean, dry, and intact with no signs of drainage. Minimal erythema and generalized swelling around the surgical site. Neurovascularly intact in the operative extremity with a soft and compressible calf. Range of motion of the operative ankle intact. Objective Labs Result Diagrams: 09/14/18 05:20 Labs: Laboratory Results - last 24 hr 09/14/18 05:20 Hgb 10.7 L Hct 31.7 L Discharge Plan Discharge Plan Patient Disposition: Home Discharge Med Rec/Prescriptions Prescriptions: New polyethylene glycol 3350 17 gram Powder In Packet 17 gm PO DAILY PRN (Reason: Constipation) Qty: 0 RF: 0 aspirin 81 mg Tablet,Delayed Release (Dr/Ec) 81 mg PO BID Qty: 0 RF: 0 docusate sodium 100 mg Capsule 100 mg PO BID Qty: 0 RF: 0 tramadol 50 mg tablet 50 mg PO TID PRN (Reason: pain) Qty: 40 RF: 0 Zetonna 37 mcg/actuation HFA aerosol inhaler 1 inhalation NASAL DAILY Qty: 6.1 RF: 0 Continued fluticasone propion-salmeterol [Advair Diskus] 250-50 mcg/dose Blister With De vice 1 inh INHALATION QAM RF: 0 ibuprofen 200 mg Capsule 800 mg PO TID PRN (Reason: pain) RF: 0 Zetonna 37 mcg/actuation Hfa Aerosol Inhaler 1 spray INTRANASAL DAILY RF: 0 Tylenol Extra Strength 500 mg 1,000 mg PO BID PRN (Reason: Pain (Scale Score 4-6)) RF: 0 Follow up/Referrals: Amara Ng MD [Physician] - (Follow up at the office in 5-7 days at your previously scheduled appointment. Please see [facility] book for exact appointment information.) Provider Discharge Instructions Diet: Diet as Tolerated Activity: Weight bearing as tolerated follow anterior hip precautions. You may walk, but please take it easy with activity in light of your stress fracture as well as the new hip. Cold/Heat Therapy: Apply ice to affected area for 20 minutes at a time at least hourly while awake. Other treatments: Please refer to [facility] book for information regarding exercises and other questions and concerns. Once vitamin-D level is back, if it is low enough to warrant a prescription strength supplement we will send that in to your pharmacy. In addition, we will wait until the 2nd postoperative visit for any type of cortisone injection into the right knee. Continue with your vitamin C and iron supplements Skin/Wound/Dressing Care Report to your healthcare provider any signs of infection, such as:: chills, fever, night sweats, increased pain, unusual drainage and unusual redness Dressing: Keep dressing clean, dry, and intact. May shower with it in place but no soaking. Visit Report/Discharge Packet Instructions: DI for Hip Replacement Stand Alone Forms: Surgery Discharge Discharge Data Attending Provider: Amara Ng Admit Date/Time: 09/13/18 10:13
[2018-09-14] MEDS: ACETAMINOPHEN 325 MG TABLET 975 MG PO (07:48)
[2018-09-14] MEDS: ASPIRIN EC 81 MG TABLET PO (07:49)
[2018-09-14 07:53] VITALS: PULSE 76; RESP 12; O2SAT 97
[2018-09-14] MEDS: FLUTICASONE/SALMETEROL 250/50 14 PUFF DISKUS INH (07:53)
[2018-09-14] MEDS: DOCUSATE 100 MG CAPSULE PO (07:53)
[2018-09-14 09:00] VITALS: BP 117/71; PULSE 77; RESP 16; TEMP 37; O2SAT 99
--- NOTE | 2018-09-14 09:15 | PT.IIE ---
Current Diagnoses Unilateral primary osteoarthritis, right hip (09/13/18) Surgery Performed Operation Date: 09/13/18 12:00 Actual Procedures p Total Hip Arthroplasty/Anterior Approach(Right) - Amara Ng MD Surgical History (Last Updated 09/03/18 @ 09:58 by Yarelis Mendez, RN) History of total left hip arthroplasty (Acute 03/29/18) Hx of appendectomy (Acute) Status post bilateral cataract extraction (Acute) Medical History (Last Updated 03/13/18 @ 10:25 by Yarelis Mendez RN) Asthma (Acute) Back pain (Acute) Bilateral hip pain (Acute) Bilateral knee pain (Acute) COPD (chronic obstructive pulmonary disease) (Acute) Migraines (Acute) Osteoarthritis (Acute) Physical Therapy Inpatient Evaluation/Re-Eval M1 PT/OT-IP Prior Functional Status Start: 09/14/18 11:17 Freq: NEEDED Status: Active Protocol: Document 09/14/18 09:15 AB (Rec: 09/14/18 11:27 AB [id number]) Medical Review Prior Functional Status Medical History Reviewed Yes Communication able to make needs known Mobility and Gait pt stated that she is modifiedindependent with all mobilities and ambulation using FWW Social History Household Members spouse family children Living Arrangements House Number of Floors (Floors) One Floor Number of Stairs To Enter/Railing? one small 1 inch transition step to get into the house Home Environment Standard Height Toilet Walk in Shower Home Equipment Front Wheel Walker Straight Cane Raised Toilet Seat w/Armrests Shower Seat without Backrest Employment Status Retired M2 PT-IP Current Condition Start: 09/14/18 11:17 Freq: NEEDED Status: Active Protocol: Document 09/14/18 09:15 AB (Rec: 09/14/18 11:27 AB [id number]) Physical Therapy Current Condition Current Condition Evaluation Date 09/14/18 Treatment Diagnosis s/p R KAZ anterior approach; difficulty in walking Onset Date 09/13/18 Precautions Anterior Hip Precautions No Hip Extension No Hip External Rotation Weight Bearing Status Weight Bearing Status Weight Bear as Tolerated M3 PT-IP Subjective Start: 09/14/18 11:17 Freq: NEEDED Status: Active Protocol: Document 09/14/18 09:15 AB (Rec: 09/14/18 11:27 AB [id number]) Subjective Physical Therapy Visit Type Type Initial Evaluation Visit Start Time 09:15 Visit Stop Time 09:57 Total Visit Minutes 42 Number of AMUSEMENT CENTRE MANAGER Visits 0 Physical Therapy Visit Comments Patient Comments pt agreeable to do PT Therapy Pain Assessment Pain When Pain Assessed At Rest Pain Present Pain Present Pain Reported Location Right Hip Intensity 2 Scale Used Numeric (1 - 10) Pain Management Techniques Apply Cold Re-positioning Timing of Activity with Medications Right Knee Intensity 5 Scale Used Numeric (1 - 10) Pain Management Techniques Apply Cold Timing of Activity with Medications M4 PT-IP Mobility and Gait Start: 09/14/18 11:17 Freq: NEEDED Status: Active Protocol: Document 09/14/18 09:15 AB (Rec: 09/14/18 11:27 AB [id number]) PT-Bed Mobility Assessment Supine to Sit Supine to Sit Standby Assistance Sit to Supine Sit to Supine Standby Assistance Scooting Scooting to Edge of Bed Standby Assistance Scooting Up and Down in Bed Standby Assistance PT-Transfer Assessment Sit to and From Stand Sit to and from Stand Standby Assistance Use of Upper Extremities Equipment Transfer Assistive Device Gait Belt Front Wheeled Walker Orthotic/Prosthetic Devices or Brace: No Gait Assessment Gait Gait Assistance Required: Standby Assistance Distance (Feet) 125 Able to Maintain Weight Bearing Status Yes During Gait Assistive Devices Assistive Device Gait Belt Front Wheeled Walker Orthotic/Prosthetic Devices or Brace: No Gait Deviations General Gait Pattern Decreased Feet Clearance Factors Limiting Gait Function Factors Limiting Gait Function Decreased Activity Tolerance Decreased Strength Limited Range of Motion Pain Poor Balance Poor Safety Awareness PT-Balance Assessment Sitting Balance and Reactions Static Sitting Balance Ability Good Dynamic Sitting Balance Ability Good Standing Balance and Reactions Static Standing Balance Ability Fair Dynamic Standing Balance Ability Fair Device Used FWW M5 PT-IP Objective Assessments Start: 09/14/18 11:17 Freq: NEEDED Status: Active Protocol: Document 09/14/18 09:15 AB (Rec: 09/14/18 11:27 AB [id number]) Orientation Orientation/Cognition Level of Alertness Alert Orientation Name Age Birthday Month Date Year Day of Week Place Situation Language Function Ability No Deficits Noted Safety Awareness Understands Safety Issues Memory Description No Deficits Noted Gross Range of Motion Lower Extremity ROM Assessment Within Functional Limits Strength Lower Extremity Strength Assessment Bilaterally Impaired Hip 3+/5 Knee 4-/5 Coordination Assessment Gross Coordination Gross Coordination WNL Sensation Assessment Sensation Gross Sensation Right LE Impaired Left LE Impaired Sensation Description Numbness Comments Sensation Comments decrerase sensation bilateral lateral aspect of thighs Muscle Tone Muscle Tone WNL Yes M6 PT-IP Treatment Start: 09/14/18 11:17 Freq: NEEDED Status: Active Protocol: Document 09/14/18 09:15 AB (Rec: 09/14/18 11:27 AB [id number]) Physical Therapy Treatment Exercises Exercises Heel Slides Education Education Provided Precautions Weight Bearing Status Post-Op Packet Safety M7 PT-IP Assessment and Plan Start: 09/14/18 11:17 Freq: NEEDED Status: Active Protocol: Document 09/14/18 09:15 AB (Rec: 09/14/18 11:27 AB [id number]) PT Summary Assessment and Plan Potential Rehabilitation Potential Good Status of Condition at Evaluation Stable Summary Impairments Pain ROM Strength Balance Coordination Sensation Bed Mobility Transfers Gait Activity Tolerance Assessment Summary pt is doing well with mobility and plans to go home with spouse to assist . Goals Bed Mobility Goal Independent Transfer Goal Independent Front Wheeled Walker Gait Goal Independent Front Wheel Walker Gait Distance 300 Days to Meet Goals 3 Frequency of Treatment Frequency Of Treatment Twice a Day Treatment Plan Physical Therapy Treatment Plan Bed Mobility Training Transfer Training Gait Training Therapeutic Exercise Balance Retraining Post Op Education Discharge Planning Hot or Cold Pack Neuromuscular Re-ed Coordination Retraining Manual Therapy Recommendations To Nursing Amount of Assist Needed Standby Assistance Discharge Recommendations PT Discharge Recommendations Home with Assistance Outpatient PT
[2018-09-14] MEDS: IBUPROFEN 400 MG TABLET 800 MG PO (12:00)
--- NOTE | 2018-09-15 08:33 | CM.IDA ---
Late Entry Reviewed chart yesterday and discussed pt in multidisciplinary rounds. Pt DC home yesterday after being cleared by therapy team and Ortho PA. No SW or DC needs or concers, DC home w/ spouse and outpt f/u w/no barriers. JW
== END 2018-09-14 13:41 | disposition home or self-care (01) | DRG 470 ==
PROVIDERS: Admitting Provider Orthopaedic Surgery; Visit Provider Orthopaedic Surgery
PROC: 0SR902Z Replacement of Right Hip Joint with Metal on Polyethylene Synthetic Substitute, Open Approach (ICD-10-PCS; CPT 27130; principal; 2018-09-13 12:00)
DX: M16.11 Unilateral primary osteoarthritis, right hip (principal); J44.9 Chronic obstructive pulmonary disease, unspecified; M65.20 Calcific tendinitis, unspecified site
CPT/HCPCS: 36415; 72170; 73502; 76000; 85014; 85018; 94640; 94760; 97161; 97530; C1776; C9290; J0690; J1100; J1170; J2250; J2274; J2405; J2704; J3010; J3370

== ENCOUNTER → 2019-05-27 12:49 | Outpatient (CLI) | payer OTHER, SELFPAY ==
[2018-09-13 17:55] VITALS: BMI 26.6
--- NOTE | 2019-05-27 | DI.MRI.S_ITS ---
PROCEDURE: MR KNEE RT WO CON INDICATIONS: LEFT HIP JOINT REPLACEMENT PAIN IN RIGHT KNEE TECHNIQUE: Noncontrast sagittal PD fast spin echo and T2 fast spin echo with fat saturation, sagittal 3-D FLASH with fat saturation; coronal T1 spin echo and PD fast spin echo with fat saturation, and axial PD fast spin echo with fat saturation through the knee. COMPARISON: [facility], CR, XR KNEE ARTHRITIC SERIES BI, 10/26/2018, 16:39. FINDINGS: Image quality: Excellent. Menisci: There is medial extrusion of the medial meniscus. The medial meniscus demonstrates linear and amorphous high signal intensity within its anterior and posterior horns, demonstrating inferior and superior tic a service extension, indicating complex tearing. There is detachment of the free edge of the anterior and posterior horns of the medial meniscus. Lateral meniscus demonstrates amorphous high signal intensity within the anterior and posterior horns, without definite articular surface extension, consistent with myxoid degeneration. Cruciate ligaments: The anterior and posterior cruciate ligaments appear intact. Medial structures: The medial collateral ligament appears intact. Visualized portions of the pes anserinus tendons appear normal. Small amount of medial bursal fluid. Lateral structures: The lateral collateral ligament, long and short heads of the biceps femoris tendon appear intact. There is a well-corticated osseous structure within the proximal aspect of the lateral collateral ligament at the femoral insertion site measuring roughly 13 mm, consistent with sequelae of remote lateral collateral ligament injury. The popliteus tendon appears normal. Iliotibial band appears normal. Anterior structures: The quadriceps and patellar tendons appear intact. Patellar alignment is normal. No femoral trochlear dysplasia or ventral trochlear prominence. Mild edema in the infrapatellar fat pad. Bones and cartilage: No bone marrow contusions nor acute fractures. There is moderate tricompartmental periarticular osteophyte formation. There is mild subchondral ill-defined T2 signal elevation within the weightbearing aspects of the medial femoral condyle and medial tibial plateau. There is subchondral low T1 signal intensity within the mid and posterior weight-bearing aspect of the medial femoral condyle, compatible with osteochondral injury. Severe diffuse articular cartilage loss overlies the weightbearing aspects of the medial femoral condyle and medial tibial plateau. Moderate articular cartilage loss diffusely overlies the weightbearing aspects of the lateral femoral condyle and lateral tibial plateau. Severe articular cartilage loss overlies the patellar apex and medial patellar facet. Joint space: There is a small knee joint effusion and small Manzano's cyst. Normal appearing synovial plicae are incidentally noted. IMPRESSION: 1. Tricompartmental osteoarthritis with associated articular cartilage loss. 2. Osteochondral injury within the medial femoral condyle. 3. Medial meniscal tearing and extrusion. 4. Remote lateral collateral ligament injury. No evidence of acute lateral collateral ligament injury. 5. Knee joint effusion and Manzano's cyst. 6. Medial bursitis. Dictated by: Daniela Peter M.D. on 05/27/2019 at 15:00 Approved by: Daniela Peter M.D. on 05/27/2019 at 15:31
== END ==
PROVIDERS: PCP Registered Nurse; Visit Provider Orthopaedic Surgery
DX: M25.561 Pain in right knee (principal); S83.231A Complex tear of medial meniscus, current injury, right knee, initial encounter; M17.11 Unilateral primary osteoarthritis, right knee; M25.461 Effusion, right knee; M71.21 Synovial cyst of popliteal space [Baker], right knee; Z96.642 Presence of left artificial hip joint; Z78.0 Asymptomatic menopausal state; Z82.62 Family history of osteoporosis
CPT/HCPCS: 73721; 77080; 77081

== ENCOUNTER 2019-06-25 10:12 | Day surgery (SDC) | payer OTHER, SELFPAY ==
[2018-09-13 17:55] VITALS: BMI 26.6
[2019-06-04 07:45] VITALS: BMI 27.5
[2019-06-25] VITALS (18 sets, daily range): BP systolic 98–135; BP diastolic 47–85; PULSE 61–81; RESP 12–18; TEMP 36–36.9; O2SAT 93–99; BMI 27.5
--- NOTE | 2019-06-25 06:00 | DI.RAD.S_ITS ---
PROCEDURE: XR KNEE RT 1TO2V INDICATIONS: post op TECHNIQUE: 2 views of the knee were acquired. COMPARISON: None. FINDINGS: Bones: No fractures or dislocations. No suspicious bony lesions. Soft tissues: No joint effusion. No suspicious soft tissue calcifications. IMPRESSION: Expected postoperative appearance Dictated by: Ty Hinds M.D. on 06/25/2019 at 18:03 Approved by: Ty Hinds M.D. on 06/25/2019 at 18:04
--- NOTE | 2019-06-25 10:31 | SUR.PREOP ---
Patient confirms allergy to vancomycin with extreme itching. Surgeon notified.
[2019-06-25] MEDS: ACETAMINOPHEN 325 MG TABLET 975 MG PO (10:38)
[2019-06-25] MEDS: PREGABALIN 75 MG CAPSULE PO (10:39)
[2019-06-25] MEDS: CELECOXIB 200 MG CAPSULE PO (10:39)
[2019-06-25] MEDS: LACTATED RINGERS 1,000 ML 42 ML IV ×2 (10:48→13:19)
--- NOTE | 2019-06-25 11:47 | P.OP_ITS ---
Operative Date/Time/Diagnoses Date of procedure: 06/25/19 Time of procedure: 13:00 Pre-op diagnosis: right knee OA Post-op diagnosis: same Procedure & Clinicians Procedure: Right total knee arthroplasty Same procedure as scheduled: Yes Indications: The patient has had progressively worsening right knee pain with radiographic changes consistent with arthritis. Non-operative management has failed and the patient has requested total knee replacement. The risks, benefits and alternatives to surgery were discussed with the patient prior to proceeding. Risks discussed included, but were not limited to, failure to relieve pain, stiffness, infection, nerve damage, deep venous thrombosis, pulmonary embolism, stroke, coma, heart attack, permanent paralysis and , as well as the potential need for eventual revision of the prosthetic. Surgeon: Amara Ng Chief Of Planning: Dorothy Hines Anesthesia Type: General and Spinal Operative Notes Findings: Severe right knee osteoarthritis, good stability Closure Type: primary Specimen(s): none sent Prosthetic devices, grafts, tissues, transplants, or devices: Ng [employer]hew S[employer] BCS 2 size 6 femur, size 4 tibia, +10 poly, 35 mm patella Applied: drain(s) Estimated Blood Loss (mL): 250 Blood products transfused: none Tourniquet time (min): 76 Procedure in detail: The patient was seen in the pre-operative area, where the patient identified the right knee as the operative site and this was marked with my initials. The patient received pre-operative antibiotics, and was taken to the operating room and placed on the operative table in the supine position. After satisfactory anesthesia, a multimedia educational specialist out was performed. The right leg was encircled with a tourniquet about the proximal thigh, and the leg was prepared from the toes to the tourniquet with ChloroPrep in the usual fashion and draped through sterile drapes. The leg was elevated and exsanguinated with Eschmark bandage and the tourniquet inflated to [250] mmHg pressure. The knee was approached through an approximately 18 cm incision centered over the patella and carried into the knee through a medial parapatellar arthrotomy. A portion of the medial and lateral meniscus was resected. Soft tissue was carefully mobilized around the patella the patella was measured with a caliper. Bone was resected from the patella and the patellar height was reconstituted with up an appropriate sized patellar component. A cover was then placed on the patella. A small amount of additional medial and lateral meniscus was resected. The visionare guide fit well to the distal femur. It looked like an appropriate distal femoral cut and the cut was made without difficulty. The rotation was assessed and the appropriate size femoral guide was placed on the distal femur and finishing cuts were made. There is no evidence of notching. The anterior, posterior and chamfer cuts were then made. The posterior osteophytes and soft tissues were then removed. The posterior capsule was injected with part of a mixture of 60 ml 0.25% Marcaine mixed with 20 ml Exparel for post operative pain control. The remainder of this mixture was injected into the capsule and subcutaneous tissues during cement curing. The tibia was prepared and the visionaire guide fit well to the distal tibia. The rotation was assessed. The patient was placed in extension residual medial and lateral meniscus as well as any residual bone was carefully resected. [No] additional tibia was resected. Hemostasis was achieved especially posteriorly. Additional local was injected into the posterior capsule. The extension gap was assessed and additional releases for gap balancing were performed as necessary. It was checked with the gap aircraft hydraulic equipment mechanic. The femoral component was trial was placed and the notch was finished. Trial tibial and femoral components were then placed and the knee placed through a range of motion. Range of motion was [0-130], with good stability throughout the range. The trials were then removed, and the tibia was finished. The bone was prepared with pulsatile lavage, and dried with a sponge. Cement was applied and the final prosthetics placed. Excess cement was removed during and after cement curing. A brief Betadine soak was performed. After confirming there was no extruded cement posteriorly, the final tibial insert was placed. The knee was copiously irrigated and the tourniquet deflated. Hemostasis was obtained with the Bovie. A drain was placed and brought out superolaterally. The capsule was closed with interrupted Vicryl suture. The subcutaneous layer was closed with barbed sutures, and the skin with a running 3-0 V-Lock suture and Surgical glue. An Aquacel Ag dressing was applied and the patient was taken to recovery having to lerated the procedure well. Complications: none Post-operative Condition: stable Disposition: Acute Care Plan for aftercare: The patient will be maintained on a standard total knee replacement protocol with weight bearing as tolerated. The patient will receive aspirin and sequential compression devices for DVT prophylaxis. The patient will be discharged home when safe for the home environment.
--- NOTE | 2019-06-25 11:47 | PM.PREOP ---
Pre-operative Note Interval Note History & Physical reviewed/Exam performed by Physician: Yes Changes to H&P: No
[2019-06-25] MEDS: CEFAZOLIN 2 GM/100 ML FROZ.PIGGY IV ×2 (12:45→21:21)
--- NOTE | 2019-06-25 13:12 | SUR.OPER ---
Supine on padded OR bed. Pillow under head, arms secured on padded armboards <90 degree abduction. Safety belt across torso. Non-operative leg secured with tape over blanket over lower leg. Operative leg secured in DeMayo positioner. Foam padded brace at thigh of operative leg.
[2019-06-25] MEDS: BUPIVACAINE 0.25% W/ EPI (PF) 10 ML VIAL 60 ML INJ (13:17)
[2019-06-25] MEDS: BUPIVACAINE LIPOSOME 266 MG/20 ML VIAL INJ (13:17)
[2019-06-25] MEDS: SODIUM CHLORIDE IRRIG SOLUTION 250 ML, POVIDONE-IODINE SPONGE STICKS 1 APPLIC IRR (13:21)
[2019-06-25] MEDS: TRANEXAMIC ACID 1,000 MG VIAL 1000 MG INJ ×2 (13:21→14:52)
[2019-06-25] MEDS: OXYCODONE/ACETAMINOPHEN 5/325 TABLET 1 TAB PO ×2 (15:15→16:06)
[2019-06-25] MEDS: HYDROMORPHONE 2 MG INJ IV ×2 (15:36→16:08)
--- NOTE | 2019-06-25 15:44 | SUR.PHASEI ---
Gave patient po and IV pain medication 2nd to patient c/o pain increasing. patient states spinal has worn off and I'm in pain. Patient able to GARCIA's x 4. Drsg CDI. VSS.
--- NOTE | 2019-06-25 16:31 | SUR.PHASEI ---
Patient indicates pain is tolerable.
[2019-06-25] MEDS: IBUPROFEN 400 MG TABLET PO (17:35)
[2019-06-25] MEDS: LACTATED RINGERS 1,000 ML 125 ML IV (17:35)
[2019-06-25] MEDS: ACETAMINOPHEN 325 MG TABLET 650 MG PO (21:20)
[2019-06-25] MEDS: ASPIRIN EC 81 MG TABLET PO (21:20)
[2019-06-26] MEDS: IBUPROFEN 400 MG TABLET 800 MG PO ×3 (00:08→12:21)
[2019-06-26] MEDS: LACTATED RINGERS 1,000 ML 125 ML IV (02:23)
--- NOTE | 2019-06-26 02:30 | PC.NURSE ---
Addendum entered by Tianna Gutierrez R.N. 06/26/19 03:28: HV was accidentally removed by patient at 0305 when patient was getting out of bed to use commode. Output documented in I&O's. Original Note: Shift note: Received pt from evening shift. During assessment was reported to this RN from SECTION LABORER and patient prior to assessment that a clamp was on hemovac line and questioning it's placement. Verified orders that HV was supposed to be clamped for 2 hours post arrival, clamp was not removed until 06/25 @ 0022 as it required special umbilical professor of anthropology from labor and delivery and had been missed by evening shift RN. HV was still patent and quickly had flash into container. Will continue to monitor to alleviate patients concerns regarding the HV and clamp, used therapeutic communication to alleviate concerns, patient reported feeling better after conversation.
[2019-06-26 04:30] VITALS: BP 94/56; PULSE 76; RESP 18; TEMP 36.7; O2SAT 96
[2019-06-26] MEDS: CEFAZOLIN 2 GM/100 ML FROZ.PIGGY IV (05:12)
[2019-06-26 06:31] LABS: Hematocrit 34.6 % (36-46); Hemoglobin 11.6 g/dL (12.0-16.0)
[2019-06-26 07:40] VITALS: BP 110/74; PULSE 68; RESP 16; TEMP 36.3; O2SAT 98
[2019-06-26] MEDS: DOCUSATE 100 MG CAPSULE PO (08:22)
[2019-06-26] MEDS: ASPIRIN EC 81 MG TABLET PO (08:22)
[2019-06-26] MEDS: ACETAMINOPHEN 325 MG TABLET 650 MG PO (08:23)
[2019-06-26] MEDS: FLUTICASONE/SALMETEROL 250/50 60 PUFF DISKUS INH (08:24)
--- NOTE | 2019-06-26 08:36 | CM.IDA ---
Addendum entered by CARLEY Barnett 06/26/19 08:43: PCP: Grecia Richardson Payer: [facility] Original Note: Discharge Planning/Care Management CM Discharge Assessment Start: 06/26/19 08:31 Freq: Status: Active Protocol: Document 06/26/19 08:31 CHERYL (Rec: 06/26/19 08:36 CHERYL [id number]) Discharge Planning Assessment Assigned Lead Applier CARLEY Garcia DPOA/Assigned Designee Name Bao Mari, spouse Contact Information [phone] Advance Directives? Yes Advance Directives on File Yes History Provided By Patient Prior Living Arrangements House Household Members spouse,family,children Willing to Return to Facility? No Independent with ADL's Yes Is patient alert and oriented? Yes Patient/Family Preference OP PT Therapy Barriers to Discharge No Comment Pt is POD#1 from Rt Knee surgery. DC order in place this morning pending PT. Pt is SDC Reviewed chart, pt plans to return home w/assist from spouse and adult children. PT has not assessed yet, this LOAN OPERATIONS SPECIALIST will remain available today in case DC needs or concerns arise. CARLEY Barnett Discharge Plan Home Transportation Arrangement Family Referrals Initiated None needed Additional Comment At this time. Review Status In Process
--- NOTE | 2019-06-26 10:30 | PT.IIE ---
Current Diagnoses Unilateral primary osteoarthritis, right knee (06/25/19) Surgery Performed Operation Date: 06/25/19 12:15 Actual Procedures p Total Knee Arthroplasty(Right) - Amara Ng MD Surgical History (Last Updated 06/04/19 @ 07:45 by Yarelis Mendez RN) History of total left hip arthroplasty (Acute 03/29/18) History of total right hip arthroplasty (Acute 09/13/18) Hx of appendectomy (Acute) Status post bilateral cataract extraction (Acute) Medical History (Last Updated 03/13/18 @ 10:25 by Yarelis Mendez RN) Asthma (Acute) Back pain (Acute) Bilateral hip pain (Acute) Bilateral knee pain (Acute) COPD (chronic obstructive pulmonary disease) (Acute) Migraines (Acute) Osteoarthritis (Acute) Physical Therapy Inpatient Evaluation/Re-Eval M1 PT/OT-IP Prior Functional Status Start: 06/26/19 08:17 Freq: NEEDED Status: Active Protocol: Document 06/26/19 08:40 HH (Rec: 06/26/19 10:30 [email or web address]) Medical Review Prior Functional Status Medical History Reviewed Yes Diet/Fluid Consistency Regular Communication no communication deficits noted. Able to make needs known. Mobility and Gait independent with all mobility without AD. Has pain and difficulty getting up from low chair Activities of Daily Living and IADL's independent with ADLs and IADLs. able to drive Social History Household Members spouse,family,children Living Arrangements House Number of Floors (Floors) One Floor Number of Stairs To Enter/Railing? 3 inch threshold Home Environment Standard Height Toilet,Walk in Shower Home Equipment Front Wheel Walker,Straight Cane,Power Wheelchair/Scooter, Raised Toilet Seat w/Armrests, Shower Seat with Backrest Employment Status Self-Employed Additional Social History Comment 06/26/Pt lives in [place] with and a dtr who has special needs in [place]. 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 Pt had B KZA in 2018 and 2019. She also scheduled home health PT for next 2 weeks and planned to do outpatient PT after. M2 PT-IP Current Condition Start: 06/26/19 08:17 Freq: NEEDED Status: Active Protocol: Document 06/26/19 08:40 HH (Rec: 06/26/19 10:30 [email or web address]) Physical Therapy Current Condition Current Condition Evaluation Date 06/26/19 Treatment Diagnosis R TKA, difficulty in walking Onset Date 06/25/19 Weight Bearing Status Weight Bearing Status Weight Bear as Tolerated M3 PT-IP Subjective Start: 06/26/19 08:17 Freq: NEEDED Status: Active Protocol: Document 06/26/19 08:40 HH (Rec: 06/26/19 10:30 [email or web address]) Subjective Physical Therapy Visit Type Type Initial Evaluation Visit Start Time 08:40 Visit Stop Time 09:05 Total Visit Minutes 25 Number of LOADER UNLOADER Visits 0 Physical Therapy Visit Comments Patient Comments I feel very good with my R knee Patient Goals To return home with family Therapy Pain Assessment Pain When Pain Assessed During Mobility Pain Present Pain Present Pain Reported Location Right Knee Intensity 2 Description Aching Pain Management Techniques Apply Cold,Timing of Activity with Medications M4 PT-IP Mobility and Gait Start: 06/26/19 08:17 Freq: NEEDED Status: Active Protocol: Document 06/26/19 08:40 HH (Rec: 06/26/19 10:30 [id number]) PT-Bed Mobility Assessment Supine to Sit Supine to Sit Standby Assistance Sit to Supine Sit to Supine Standby Assistance Scooting Scooting to Edge of Bed Standby Assistance Scooting Up and Down in Bed Standby Assistance PT-Transfer Assessment Sit to and From Stand Sit to and from Stand Standby Assistance,Use of Upper Extremities Equipment Transfer Assistive Device Gait Belt,Front Wheeled Walker Orthotic/Prosthetic Devices or Brace: No Transfers Transfer Destination Bed,Chair,Bedside Commode Transfer Technique Stand Step Pivot Transfer Ability Level of Assist Standby Assistance,Use of Upper Extremities Comments Mobility Comments Pt was up in bed upon assessment. Pt completed supine to sit with being able to pivot her RLE with SLR towards R EOB. She then stood up with stagger stance d/t limited knee flexion. She then amb from bedside to hallway for half of the AC unit approx 250 feet with FWW. Pt demonstrates limited flexion during RLE swing phase. She then returned to bed and able to perform sit to supine with UE assist on lifting RLE. She then got OOB again and went to BS for toileting. Call light within reach and notify nursing that shes using BSC. Gait Assessment Gait Gait Assistance Required: Standby Assistance Distance (Feet) 250 Assistive Devices Assistive Device Gait Belt,Front Wheeled Walker Orthotic/Prosthetic Devices or Brace: No Gait Deviations General Gait Pattern Antalgic,Decreased Stride Length,Decreased Feet Clearance Factors Limiting Gait Function Factors Limiting Gait Function Decreased Activity Tolerance, Decreased Strength,Limited Range of Motion,Pain Comments Gait Comments check mobility section. Stair Climbing Assessment Evaluation Level of Assist On Stairs Standby Assistance Devices Stair Climbing Assistive Devices Front Wheel Walker Technique/Endurance Stair Climbing Direction Ascend and Descend Number of Steps Climbed 1 Query Text: Comments Stair Climbing Comments platform step. Safey descend and ascend PT-Balance Assessment Sitting Balance and Reactions Static Sitting Balance Ability Normal Dynamic Sitting Balance Ability Normal Standing Balance and Reactions Static Standing Balance Ability Normal Dynamic Standing Balance Ability Normal M5 PT-IP Objective Assessments Start: 06/26/19 08:17 Freq: NEEDED Status: Active Protocol: Document 06/26/19 08:40 (Rec: 06/26/19 10:30 [email or web address]) Orientation Orientation/Cognition Level of Alertness Alert Orientation Name,Age,Birthday,Month,Date, Year,Day of Week,Place, Situation Language Function Ability No Deficits Noted Safety Awareness Understands Safety Issues Memory Description No Deficits Noted Gross Range of Motion Upper Extremity ROM Assessment Within Functional Limits Lower Extremity ROM Assessment Right Impaired Impairments knee AROM 5-65 degrees Strength Upper Extremity Strength Assessment Within Functional Limits Lower Extremity Strength Assessment Right Impaired Knee 4-/5 Coordination Assessment Gross Coordination Gross Coordination WNL Sensation Assessment Sensation Gross Sensation WNL Light Touch Intact Proprioception (Position) Intact Muscle Tone Muscle Tone WNL Yes M6 PT-IP Treatment Start: 06/26/19 08:17 Freq: NEEDED Status: Active Protocol: Document 06/26/19 08:40 (Rec: 06/26/19 10:30 [email or web address]) Physical Therapy Treatment Exercises Exercises Ankle Pumps,Gluteal Sets,Quad Sets,Heel Slides,Straight Leg Raises Education Education Provided Precautions,Weight Bearing Status,Post-Op Packet,Safety M7 PT-IP Assessment and Plan Start: 06/26/19 08:17 Freq: NEEDED Status: Active Protocol: Document 06/26/19 08:40 (Rec: 06/26/19 10:30 [email or web address]) PT Summary Assessment and Plan Potential Rehabilitation Potential Excellent Status of Condition at Evaluation Stable Summary Impairments Pain,ROM,Strength,Balance,Bed Mobility,Transfers,Gait, Activity Tolerance Progress Towards Goals Safe For Discharge Assessment Summary Pt is a low complexity s/p POD 2 R TKA. Pt overall did very well with mobility with SBA needed only. Pt is very good safety awareness and adequeste home DMEs d/t previous B KAZ. However, pt demonstrates limited R knee flexion up to 65 degrees and recommended to practice seated heel slide. Pt will be safe to d/c home with assistance at this point and her scheduled home health PT to improve her functional mobility and strength. Frequency of Treatment Frequency Of Treatment Discharge Recommendations To Nursing Amount of Assist Needed Standby Assistance Discharge Recommendations PT Discharge Recommendations Home with Assistance,Home Health,Outpatient PT Transportation Needs at Discharge Private Vehicle
--- NOTE | 2019-06-26 13:54 | PC.NURSE ---
Day Shift- Right knee aquacel dressing CDI, CMS+, augustin wrap in place. Pt ready for discharge, pain managed on Scheduled Tylenol and PRN Ibuprofen, pain management plan discussed for home plan, refer to [facility] booklet. Discharge summary packet reviewed with pt and her , no voiced concerns. Pt's Bao present to drive pt home. Pt states has all belongings. Pt left unit via wheelchair at 1350 in no distress with RECEPTIONIST NURSE escort.
--- NOTE | 2019-06-26 17:25 | PM.PNPO.1 ---
Subjective Subjective Date Patient Seen: 06/26/19 Time Patient Seen: 07:40 Interval history: POD #1 s/p R total knee arthroplasty with Dr. Ng. Patient is doing well post operatively. Has minimal pain in right knee. Pain is managed with ibuprofen and tylenol. Is ambulating on own and but has not mobilized with PT. Voiding without difficulty. Patient denies fever, chills, chest pain, shortness of breath, nausea. Exam Vital Signs (past 8 hours): Oxygen Delivery Method Room Air Oxygen Flow Rate 0 Narrative Exam Narrative: 59 year old female is sitting comfortably in bed, in no apparent distress. A&Ox3. Aquacel dressing is CDI. SCDs in place. Able to actively dorsiflex/plantar flex BL. Sensory function grossly intact to light touch in LE BL. Dorsalis pedis 2+ BL. Calves warm, soft, compressible, non tender to palpation. Objective Labs Result Diagrams: 06/26/19 05:40 Labs: Laboratory Results - last 24 hr 06/26/19 05:40 Hgb 11.6 L Hct 34.6 L Assessment & Plan Post-op Postoperative Procedures: Procedures Operation Date: 06/25/19 12:15 Actual Procedures Side Surgeon p Total Knee Arthroplasty Right Amara Ng MD Postoperative status: doing well Postoperative plan: discharge Postoperative plan narrative: Patient is ready for discharge home pending PT clearance - pain controlled, voiding without difficulty or assistance Continue current pain management - Patient has oxycodone prescription at home ASA 81mg BID for 6 weeks for DVT prophylaxis Follow up with clinic in 1 week. Time Spent With Patient Time with patient: less than 15 minutes Quality VTE Deep Vein Thrombosis/Pulmonary Embolism Present on Admission: No
--- NOTE | 2019-06-27 11:54 | CM.DPC ---
DCP Cont: Faxed clinical notes for review to [facility] at fax # [phone] as requested. Fax confirmation scanned in. Misty Galeas, [facility] Pharmacy Affairs Assistant
== END 2019-06-26 13:50 | disposition home or self-care (01) ==
LOC: OR 10:15 → AC 10:15
PROVIDERS: PCP Registered Nurse; Visit Provider Orthopaedic Surgery
PROC: 0SRC0JZ Replacement of Right Knee Joint with Synthetic Substitute, Open Approach (ICD-10-PCS; CPT 27447; principal; 2019-06-25 12:15)
DX: M17.11 Unilateral primary osteoarthritis, right knee (principal); J45.20 Mild intermittent asthma, uncomplicated
CPT/HCPCS: 27447; 36415; 73560; 85014; 85018; 97161; 97530; C1776; C9290; J0690; J1100; J1170; J2250; J2405; J2704; J3010

== ENCOUNTER → 2020-08-27 13:58 | Outpatient (CLI) | payer OTHER, SELFPAY ==
[2019-06-25 17:47] VITALS: BMI 27.5
--- NOTE | 2020-08-27 | DI.MRI.S_ITS ---
PROCEDURE: MR KNEE LT WO CON INDICATIONS: ARTHRITIS TECHNIQUE: Noncontrast sagittal PD fast spin echo and T2 fast spin echo with fat saturation, sagittal 3-D FLASH with fat saturation; coronal T1 spin echo and PD fast spin echo with fat saturation, and axial PD fast spin echo with fat saturation through the knee. COMPARISON: [facility] [place], CR, XR KNEE ARTHRITIC SERIES BI, 08/12/2020, 9:22. FINDINGS: Image quality: Excellent. Menisci: Mild amorphous high signal intensity within the medial meniscal body is present without definite articular surface extension. There is linear oblique high signal intensity traversing the lateral meniscal body, demonstrating superior articular surface extension. Cruciate ligaments: The anterior and posterior cruciate ligaments appear intact. Medial structures: The medial collateral ligament appears intact. Moderate T2 signal elevation surrounds the medial collateral ligament. Visualized portions of the pes anserinus tendons appear normal. No abnormal bursal fluid. Lateral structures: The lateral collateral ligament, long and short heads of the biceps femoris tendon appear intact. The popliteus tendon appears normal. Iliotibial band appears normal. Anterior structures: The quadriceps and patellar tendons appear intact. Patellar alignment is normal. No femoral trochlear dysplasia or ventral trochlear prominence. No edema in the infrapatellar fat pad. Bones and cartilage: No displaced fracture. There is moderate ill-defined T2 signal elevation within the medial tibial plateau anteriorly. Mild tricompartmental periarticular osteophyte formation is present. Moderate to severe articular cartilage loss overlies the mid and anterior weight-bearing aspects of the medial femoral condyle and medial tibial plateau. Mild articular cartilage loss diffusely overlies the weight-bearing aspects of the lateral femoral condyle and lateral tibial plateau. Severe articular cartilage loss overlies the medial and lateral patellar facets as well as the patellar apex. Joint space: There is a moderate knee joint effusion and a moderate Manzano's cyst. Normal appearing synovial plicae are incidentally noted. IMPRESSION: 1. Tricompartmental osteoarthritis with associated articular cartilage loss. 2. Lateral meniscal tearing. 3. MCL strain. 4. Knee joint effusion and Manzano's cyst. Dictated by: Daniela Peter M.D. on 08/27/2020 at 14:43 Approved by: Daniela Peter M.D. on 08/27/2020 at 14:46
== END ==
PROVIDERS: PCP Registered Nurse; Referring Provider Orthopaedic Surgery; Visit Provider Orthopaedic Surgery
DX: M17.0 Bilateral primary osteoarthritis of knee (principal); M71.22 Synovial cyst of popliteal space [Baker], left knee; M23.201 Derangement of unspecified lateral meniscus due to old tear or injury, left knee
CPT/HCPCS: 73721

== ENCOUNTER → 2020-08-28 14:25 | Outpatient (CLI) | payer OTHER, SELFPAY ==
[2019-06-25 17:47] VITALS: BMI 27.5
[2020-08-28 14:38] LABS: WBC Urine None Seen (0-5/HPF)
[2020-08-28 15:02] LABS: Add Manual Diff / Slide Review NO; Basophils Absolute Auto 100 /uL (0-100); Basophils Percent Auto 0.8 % (0-2); Eosinophils Absolute Auto 200 /uL (0-450); Eosinophils Percent Auto 2.6 % (2-4); Hematocrit 41.9 % (36-46); Hemoglobin 14.1 g/dL (12.0-16.0); Lymphocytes Absolute Auto 1100 /uL (1100-4500); Lymphocytes Percent Auto 17.9 % (25-40); Mean Corpuscular HGB Conc 33.6 % (30-36); Mean Corpuscular Hemoglobin 30.3 PG (26-34); Mean Corpuscular Volume 90.3 fL (80-100); Monocytes Absolute Auto 400 /uL (0-900); Monocytes Percent Auto 6.3 % (3-14); Neutrophils Absolute Auto 4500 /uL (1500-7000); Neutrophils Percent Auto 72.4 % (50-75); Platelet Count 272 X10^3/uL (150-400); Red Blood Cell Count 4.65 X10^6/uL (4.0-5.2); Red Cell Distribution Width 12.6 % (11.6-14.8); White Blood Cell Count 6.2 X10^3/uL (4.5-11.0)
[2020-08-28 15:12] LABS: Appearance Urine UA CLEAR; Bilirubin Urine UA NEGATIVE (NEGATIVE); Color Urine UA YELLOW; Glucose Urine UA NEGATIVE (Negative); Ketones Urine UA NEGATIVE (NEGATIVE); Leukocyte Esterase Urine UA NEGATIVE (NEGATIVE); Nitrite Urine UA NEGATIVE (Negative); Occult Blood Urine UA TRACE-LYSED (Negative); Protein Urine UA NEGATIVE (Negative); Specific Gravity Urine UA 1.015 (1.000-1.035); Urobilinogen Urine UA 0.2 E.U./dL (0.2)
[2020-08-28 15:26] LABS: Bacteria Urine Few (2-10); Culture Indicated Urine Cult Not Indicated; RBC Urine 0-1/HPF (0-5/HPF); Squamous Epithelial Cell Urine 0-1 /HPF (0-5/HPF); pH Urine UA 5.5 (4.5-8.0)
[2020-08-28 15:47] LABS: BUN Creatinine Ratio 16.5 (6-22); Blood Urea Nitrogen 14 mg/dL (7-17); Calcium 9.3 mg/dL (8.4-10.2); Carbon Dioxide 29 mmol/L (22-32); Chloride 104 mmol/L (98-107); Estimated Glomerular Filt Rate > 60.0 mL/min (>60); Glucose 133 mg/dL (80-110); HEMOLYSIS < 15 (0-50); Potassium 4.1 mmol/L (3.4-5.1); Sodium 142 mmol/L (137-145)
[2020-08-28 15:56] LABS: Hemoglobin A1C% w Est Avg Glu 5.2 % (4.0-6.0)
== END ==
PROVIDERS: PCP Registered Nurse; Referring Provider Orthopaedic Surgery; Visit Provider Orthopaedic Surgery
DX: Z01.818 Encounter for other preprocedural examination (principal); Z01.812 Encounter for preprocedural laboratory examination; R73.9 Hyperglycemia, unspecified; N39.0 Urinary tract infection, site not specified
CPT/HCPCS: 0011A; 36415; 80048; 81001; 83036; 85025; 91301; 93005

== ENCOUNTER → 2020-08-28 14:50 | Outpatient (CLI) | payer OTHER, SELFPAY ==
[2019-06-25 17:47] VITALS: BMI 27.5
[2020-08-28] MEDS: COVID-19 VACC #1, MRNA(MOD) 100 MCG/0.5 ML VIAL IM (15:00)
== END ==
PROVIDERS: PCP Registered Nurse; Visit Provider Internal Medicine
DX: Z23 Encounter for immunization (principal)
CPT/HCPCS: 0011A; 91301

== ENCOUNTER → 2021-07-06 13:44 | Outpatient (CLI) | payer OTHER, SELFPAY ==
[2019-06-25 17:47] VITALS: BMI 27.5
--- NOTE | 2021-07-06 | DI.US.S_ITS ---
ULTRASOUND OF LEFT BREAST: 07/06/2021 CLINICAL: Focal left breast and axilla pain. Comparison is made to exams dated: 07/06/2021 mammogram - [facility], 05/27/2021 mammogram - [facility], 06/11/2020 ultrasound, 06/11/2020 mammogram - [facility], 05/19/2020 mammogram, and 05/02/2019 mammogram - [facility]. Color flow ultrasound of the left breast was performed. Johnston scale images of the real-time examination were reviewed. There is a benign 0.6 cm round simple cyst with a smooth internal wall in the left breast central to the nipple in the retroareolar region. This round simple cyst is anechoic. This correlates as an incidental finding. An adjacent benign dilated duct is also noted. IMPRESSION: BENIGN There is no sonographic evidence of malignancy. The 0.6 cm round simple cyst in the left breast is benign. There is no abnormality seen in the left breast to correspond with the diffuse pain, however, clinical followup is recommended. Return to annual mammogram screening schedule is recommended. This exam was interpreted at Station ID: [id number]. Electronically Signed By: Adithya stack/jarred:07/06/2021 16:16:09 letter sent: Clinical Evaluation Ultrasound BI-RADS: 2 Benign
--- NOTE | 2021-07-06 | DI.MG.S_ITS ---
UNILATERAL LEFT DIGITAL DIAGNOSTIC MAMMOGRAM 3D/2D: 07/06/2021 CLINICAL: Left breast pain. Comparison is made to exams dated: 05/27/2021 mammogram - [facility], 06/11/2020 mammogram - [facility], 05/19/2020 mammogram, and 05/02/2019 mammogram - [facility]. The tissue of left breast is heterogeneously dense. This may lower the sensitivity of mammography. No significant masses, calcifications, or other findings are seen in the breast. IMPRESSION: INCOMPLETE: NEEDS ADDITIONAL IMAGING EVALUATION There is no abnormality seen in the left breast to correspond with the pain in the upper outer quadrant, however, ultrasound is recommended. This exam was interpreted at Station ID: [id number]. NOTE: For mammograms, a report in lay terms will be sent to the patient. Approximately 15% of breast malignancies will not be visualized mammographically. In the management of a palpable breast mass, a negative mammogram must not discourage biopsy of a clinically suspicious lesion. Electronically Signed By: Adithya stack/jarred:07/06/2021 16:13:05 ACR BI-RADS Category 0: Incomplete [id number]
== END ==
PROVIDERS: PCP Registered Nurse; Referring Provider Registered Nurse; Visit Provider Registered Nurse
DX: N60.02 Solitary cyst of left breast; N64.4 Mastodynia; R92.2 Inconclusive mammogram
CPT/HCPCS: 76642; 77065; G0279

== ENCOUNTER → 2022-06-07 12:58 | Outpatient (CLI) | payer OTHER, SELFPAY ==
[2019-06-25 17:47] VITALS: BMI 27.5
--- NOTE | 2022-06-07 | DI.RAD.S_ITS ---
PROCEDURE: XR CHEST 2V INDICATIONS: Pneumonia, unspecified organism TECHNIQUE: 2 views of the chest were acquired. COMPARISON: None. FINDINGS: Surgical changes and devices: None. Lungs and pleura: Linear atelectasis/scarring at left lung base is seen. Hyperinflation is also noted. No pleural effusions or pneumothorax. Mediastinum: Mediastinal contours are normal. Heart size is normal. Bones and chest wall: No suspicious bony abnormalities. Soft tissues appear unremarkable. IMPRESSION: Mild hyperinflation and left basilar atelectasis/scarring. No focal infiltrate, pleural effusion or pneumothorax. Dictated by: Rivas Maguire M.D. on 06/07/2022 at 17:04 Approved by: Rivas Maguire M.D. on 06/07/2022 at 17:05
== END ==
PROVIDERS: PCP Registered Nurse; Referring Provider Pediatrics; Visit Provider Pediatrics
DX: J18.9 Pneumonia, unspecified organism (principal)
CPT/HCPCS: 71046

== ENCOUNTER → 2022-07-25 13:06 | Outpatient (CLI) | payer OTHER, SELFPAY ==
[2019-06-25 17:47] VITALS: BMI 27.5
--- NOTE | 2022-07-25 | DI.MG.S_ITS ---
BILATERAL DIGITAL SCREENING MAMMOGRAM 3D/2D WITH CAD: 07/25/2022 CLINICAL: Routine screening. Family history of breast cancer. Comparison is made to exams dated: 05/27/2021 mammogram, 05/19/2020 mammogram, 05/02/2019 mammogram - [facility], 07/06/2021 mammogram - [facility], and 06/11/2020 mammogram - [facility]. Both breasts are heterogeneously dense, which may obscure small masses (category c / 51-75% glandular tissue). Current study was also evaluated with a Computer Aided Detection (CAD) system. No significant masses, calcifications, or other findings are seen in either breast. There has been no significant interval change. IMPRESSION: NEGATIVE There is no mammographic evidence of malignancy. A 1 year screening mammogram is recommended. This exam was interpreted at Station ID: [id number]. NOTE: For mammograms, a report in lay terms will be sent to the patient. Approximately 15% of breast malignancies will not be visualized mammographically. In the management of a palpable breast mass, a negative mammogram must not discourage biopsy of a clinically suspicious lesion. Electronically Signed By: Adithya stack/jarred:07/25/2022 14:01:56 letter sent: Normal Exam ACR BI-RADS Category 1: Negative [id number]
== END ==
PROVIDERS: PCP Registered Nurse; Referring Provider Registered Nurse; Visit Provider Registered Nurse
DX: Z12.31 Encounter for screening mammogram for malignant neoplasm of breast (principal); Z80.3 Family history of malignant neoplasm of breast
CPT/HCPCS: 77063; 77067